=== PATIENT | male | born 1955 | race Caucasian/White ===

== ENCOUNTER 2019-02-16 22:26 | Inpatient (IN) | payer MEDICARE ==
[2019-02-17 06:26] VITALS: BP 127/64
--- NOTE | 2019-02-17 07:09 | Psychiatric Evaluation ---
DATE OF SERVICE: 02/17/2019 PSYCHIATRIC INITIAL EVALUATION AND MENTAL STATUS EXAMINATION AGE: 63. SEX: Male. PHYSICIAN: Said Radha Fiore M.D. CHIEF COMPLAINT: "I have been drinking too much." HISTORY OF PRESENT ILLNESS: The patient is a 63-year-old male who was transferred from [facility] for treatment of depression. The patient said he has been depressed because of his inability to stop drinking. The patient has been drinking about 6 pegs every day. The patient said that he has been depressed because he has not been able to stop drinking, although he had tried to stop drinking, but unable to do so. The patient has been feeling hopeless and helpless, but denies any thoughts of suicide. PAST PSYCHIATRIC HISTORY: The patient has not seen a psychiatrist or got any treatment for his drinking problem. PAST MEDICAL HISTORY: The patient has history of hypertension. SOCIAL HISTORY: The patient said that he has been for about 18 years, has 6 children between him and his current and this is his second marriage. The patient admits to drinking as mentioned above, but he denies any other drug use. He denies any legal issues or abuse issues. ALLERGIES: No known allergies. MENTAL STATUS EXAMINATION: The patient appears slightly older than his stated age. Anxious. Sad affect. In a depressed mood. Thought processes are mainly goal directed. The patient denies any auditory or visual hallucinations or delusions. The patient denies any suicidal or homicidal ideations. The patient is alert and oriented to time, place, person, and situation. Intact immediate, recent and remote memories. Fair insight and fair judgment. Seems to be of average intelligence based on his verbal ability. ASSESSMENT: PRIMARY DIAGNOSIS: Depressive mood disorder, unspecified. SECONDARY DIAGNOSIS: Alcohol use disorder. MEDICAL DIAGNOSIS: Hypertension. TREATMENT PLAN: We will monitor the patient's behavior and condition closely. We will start individual as well as milieu psychotherapy. We will monitor psychotropic medications. ESTIMATED LENGTH OF STAY: 5-7 days. PATIENT'S STRENGTHS AND WEAKNESSES: The patient's strength is not clear at this time. Weaknesses are his ineffective coping and his misuse of leisure time by drinking. AFTER DISCHARGE PLAN: Outpatient treatment and followup will continue as an outpatient. CRITERIA FOR DISCHARGE: The patient will not be as depressed and we will stabilize psychotropic medications and establish outpatient treatment plans including rehabilitation for his drinking and also the patient to return to [facility]. [facility]# [id number]
[2019-02-17] MEDS ORDERED: Albuterol Nebulizer 2.5mg/3mL HHN PRN (07:35)
[2019-02-17] MEDS ORDERED: Magnesium Hydroxide (MOM) 30 mL UDC PO PRN (07:40)
[2019-02-17] MEDS ORDERED: Acetaminophen 500 MG TAB PO PRN (07:45)
[2019-02-17] MEDS: Multivitamin Tab PO SCH (09:39)
--- NOTE | 2019-02-17 16:12 | History & Physical ---
ADMIT DATE: 02/17/2019 CHIEF COMPLAINT: Admitted to inpatient unit. HISTORY OF PRESENT ILLNESS: This is a 63-year-old male with history of stroke with left-sided weakness, left facial drooping, COPD, hypertension, hypercholesterolemia, BPH, admitted from [facility] and cleared medically from ____ ER. The patient was admitted under services of Dr. Fiore. The patient denies chest pain, shortness of breath, last stroke was 2 years ago, no changes since then. PAST MEDICAL HISTORY: As mentioned in history of present illness. PAST SURGICAL HISTORY: Status post left ankle surgery secondary to fracture. ALLERGIES: No known drug allergies. MEDICATIONS: Tylenol, albuterol nebulizer, Norvasc, atorvastatin, Dulcolax, Plavix, Colace, Lexapro, folic acid, hydrochlorothiazide, lorazepam, losartan, metoprolol, tamsulosin, Coumadin, Ambien. FAMILY HISTORY: Noncontributory. SOCIAL HISTORY: The patient lives in a custodial. The patient was avid smoker, a pack per day, drinks beer. No intravenous drug use. 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 REVIEW OF SYSTEMS: GENERAL: Complains not feeling well. HEENT: No blurred vision. No neck pain. LUNGS: Diagnosis of asthma, ____ chronic obstructive pulmonary disease and has been on oxygen from 2 years. HEART: The patient with hypertension, coronary artery disease, myocardial infarction. ABDOMEN: No nausea, vomiting, pain. GENITOURINARY: The patient denies increased frequency or dysuria. NEUROLOGIC: The patient with history of stroke, no headache, or seizure. PSYCHIATRIC: Stable. PHYSICAL EXAMINATION: VITAL SIGNS: Blood pressure 126/80, respirations 18, pulse 95, temperature 98.6. GENERAL: Elderly male, appears chronically ill. Left facial drooping. NECK: Supple. LUNGS: Equal breath sounds, otherwise clear to auscultation. HEART: Regular rate and rhythm with systolic ejection murmur. ABDOMEN: Soft, globular. EXTREMITIES: Positive excoriation atrophy, left upper extremity deformity and left lower extremity. NEUROLOGIC: Decreased motor and sensory in left upper and left lower extremity. LABORATORY DATA: CBC, CMP within range, ____ lipid and TSH are pending. ASSESSMENT AND PLAN: 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 Continue oxygen, bronchodilator treatments, continue anticoagulation. Pharmacy will be following. Continue on current antihypertensive medication. We will make some adjustment, continue statin. Continue Flomax. Continue with current care. JOB# [id number] MANJINDER
[2019-02-17] MEDS: Atorvastatin Calcium 10 MG TAB PO SCH (20:40)
[2019-02-18] MEDS: Multivitamin Tab PO SCH (08:27)
--- NOTE | 2019-02-18 10:37 | Progress Notes ---
DATE: SUBJECTIVE: Chart reviewed and the patient interviewed. Also discussed the patient's condition with the staff and reviewed records and labs. The patient is still in a depressed mood and is still guarded and withdrawn. The patient also still gets irritable and angry easily and with episodes of yelling and screaming at staff according to the staff. The patient also still needs directions and easy to follow directions. He wants to be left alone, but at times demanding and yesterday, the patient was demanding to talk to his sister who is living in [place], which he did talk to her. Otherwise, the patient continued to comply with taking his medications with no side effects of medications and he started on Lexapro 10 mg every day. ASSESSMENT: The patient is still depressed and in irritable mood. TREATMENT PLAN: Continue to monitor behavior and condition closely. Also, continue adjusting psychotropic medications and continue to work on behavioral modification. PSYCHIATRIC# [id number]
--- NOTE | 2019-02-18 12:38 | Internal Medicine Prog Note ---
Internal Medicine Subjective - Subjective Patient seen and examined:: with staff, chart reviewed Patient is:: awake, verbal, non-interactive, in bed Per staff patient has:: no adverse event, no episodes of fall, poor appetite, tolerating meds Internal Medicine Objective - Physical Exam Vitals and I&O: Vital Signs Temp 97.4 F 02/18/19 06:39 Pulse 72 02/18/19 06:39 Resp 18 02/18/19 06:39 BP 108/58 02/18/19 06:39 Pulse Ox 95 02/18/19 06:39 Intake & Output 02/17/19 02/18/19 02/18/19 18:59 06:59 18:59 Intake Total 860 120 Balance 860 120 Weight (lbs) 57.606 kg Intake: Oral 740 120 Other 120 Other: # Voids 2 3 # Bowel Movements 0 1 Stool Characteristics Soft Soft Active Medications: Current Medications Acetaminophen (Tylenol) 650 mg PO Q4HR PRN PRN Reason: Moderate Pain / Temp above 100 Stop: 04/18/19 06:31 Acetaminophen (Tylenol Extra Strength) 500 mg PO Q6H PRN PRN Reason: Pain (Mild) Stop: 04/18/19 07:44 Albuterol Sulfate (Albuterol 2.5mg/3ml Neb Ud) 2.5 mg HHN Q4H PRN PRN Reason: Shortness of Breath Stop: 04/18/19 07:34 Amlodipine Besylate (Norvasc) 2.5 mg PO DAILY [facility] Stop: 04/18/19 08:59 Last Admin: 02/18/19 08:26 Dose: Not Given Atorvastatin Calcium (Lipitor) 20 mg PO [facility]; Protocol Stop: 04/18/19 20:59 Last Admin: 02/17/19 20:40 Dose: 20 mg Bisacodyl (Dulcolax 10 Mg Supp) 10 mg RC DAILY PRN PRN Reason: Constipation Stop: 04/18/19 07:37 Clopidogrel Bisulfate (Plavix) 75 mg PO DAILY [facility] Stop: 04/18/19 08:59 Last Admin: 02/18/19 08:26 Dose: 75 mg Docusate Sodium (Colace) 100 mg PO BID PRN PRN Reason: Constipation Stop: 04/18/19 08:59 Last Admin: 02/17/19 16:22 Dose: 100 mg Escitalopram Oxalate (Lexapro) 10 mg PO DAILY [facility]; Protocol Stop: 04/18/19 08:59 Last Admin: 02/18/19 08:26 Dose: 10 mg Folic Acid (Folate) 1 mg PO DAILY [facility] Stop: 04/18/19 08:59 Last Admin: 02/18/19 08:27 Dose: 1 mg Hydrochlorothiazide (Hctz) 12.5 mg PO DAILY [facility] Stop: 04/18/19 08:59 Last Admin: 02/18/19 08:27 Dose: Not Given Lorazepam (Ativan) 0.5 mg PO Q4HR PRN; Protocol PRN Reason: Anxiety Stop: 03/19/19 06:31 Losartan Potassium (Cozaar) 50 mg PO DAILY [facility] Stop: 04/18/19 08:59 Last Admin: 02/18/19 08:26 Dose: Not Given Magnesium Hydroxide (Milk Of Magnesia) 30 ml PO HS PRN PRN Reason: Constipation Stop: 04/18/19 07:39 Metoprolol Tartrate (Lopressor) 25 mg PO BID [facility] Stop: 04/18/19 08:59 Last Admin: 02/18/19 08:28 Dose: Not Given Multivitamins/Vitamin C (Theragran) 1 tab PO DAILY [facility] Stop: 04/18/19 08:59 Last Admin: 02/18/19 08:27 Dose: 1 tab Tamsulosin HCl (Flomax) 0.4 mg PO HS [facility] Stop: 04/18/19 20:59 Last Admin: 02/17/19 20:40 Dose: 0.4 mg Thiamine HCl (Vitamin B1) 100 mg PO DAILY [facility] Stop: 04/18/19 08:59 Last Admin: 02/18/19 08:26 Dose: 100 mg Warfarin Sodium (Coumadin) 3 mg PO 1700 [facility]; Protocol Stop: 02/19/19 16:59 Last Admin: 02/17/19 16:23 Dose: 3 mg Warfarin Sodium (Coumadin Per Pharmacy) 1 ea MC 1700 [facility]; Protocol Stop: 04/18/19 16:59 Zolpidem Tartrate (Ambien) 5 mg PO HS PRN PRN Reason: Insomnia Stop: 04/18/19 06:31 General: demented HEENT: NC/AT, PERRLA, EOMI, thinning hair, poor dentition Neck: Supple, No JVD Lungs: CTAB Cardiovascular: RRR, Normal S1, Normal S2 Abdomen: soft, non-tender, non-distended, positive bowel sound Extremities: excoriation Neurological: no change, disorganized Internal Medicine Assmt/Plan - Assessment Assessment: ASSESSMENT AND PLAN: 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 - Plan Plan: PLAN: (the patient is oxygen dependent). Continue oxygen, bronchodilator treatments, continue anticoagulation. Pharmacy will be following. Continue on current antihypertensive medication. We will make some adjustment, continue statin. Continue Flomax. Continue with current care. Nutritional Asmnt/Malnutr-PDOC - Dietary Evaluation Malnutrition Findings (Please click <Entered> for more info): Nutritional Asmnt/Malnutrition Start: 02/17/19 16: 01 Text: Status: Active Freq: Protocol: Document 02/17/19 16:02 PATRICIA (Rec: 02/17/19 16:06 PATRICIA [email or web address]) Nutritional Asmnt/Malnutrition Patient General Information Nutritional Screening Moderate Risk Consult Diagnosis Depression, FTT Pertinent Medical Hx/Surgical Hx HTN, RN stated Pt had a previous stroke (No H&P Report , limited Hx) Subjective Information IA, Consult: FTT Pt is a 63-year-old male admitted on 02/17 c/o drinking too much with associated depression. Received consult for Failure to Thrive. Visited Pt in room, pt was awake and alert. Pt stated he has not had anything to drink in 5-6 years. He stated he has lost 25# in the last few months. I had nurse, Carla, recheck pts weight as he did not appear obese. His current weight is 127 LB (57.73 kg), this is a correction from his [employer] stats having his weight at 220#. Pt did not seem to have fat/muscle wasting at the temples, under eyes, or near the clavicle, but did seem overall skinny. Asked pt how his appetite has been, he stated fine, but GEOPHYSICIST reported he only ate 25% breakfast and lunch. I offered pt a snack, asking if he was hungry right now. He said yes. I brought him an Ensure Enlive, chocolate is his favorite flavor, and egg salad sandwich and some pears. I told pt to do his best to eat at dinner time and drink liquids to help with his constipation. He stated OK. Pt was alert and seemed to understand, however was also a little unfocused and may have been confused. Spoke with Carla about offering him snacks between meals. Will add Ensure Enlive TID. HT: 511 WT: 127 LB (57.73 kg) BMI: 17.7 (Underweight) GI: Flat, Soft BM: Not noted, Constipation Skin: WNL, Intact, no edema present Alessandro: 14 Diet Order: Cardiac Estimated Energy Needs: ( Underweight, CBW) 2357-0669 kcals (30-35 kcals/ kg) 58-70g Pro (1.0-1.2 g/kg) 4010-9959 ml (25-30 ml/kg) Current Diet Order/ Nutrition Support Cardiac Pertinent Medications Albuterol, Lipitor, Plavix, Colace, Folate, Hydrochlorothiazide, Cozaar, MOM (PRN), Flomax, Vitamin B1, Coumadin Pertinent Labs No current labs to report Nutritional Hx/Data Height 1.8 m Height (Calculated Centimeters) 180.3 Current Weight (lbs) 57.606 kg Weight (Calculated Kilograms) 57.6 Weight (Calculated Grams) 31896.2 [place] Body Weight 172 LB (78.18 kg) % [place] Body Weight 74 Body Mass Index (BMI) 17.6 Weight Status Underweight GI Symptoms GI Symptoms Constipation Last BM Not noted, Constipation Skin Integrity/Comment: Skin: WNL, Intact, no edema present Alessandro: 14 Estimated Nutritional Goals BEE in Kcals: Using Current wt Calories/Kcals/Kg 30-35 Kcals Calculated 5107-2900 Protein: Using Current wt Protein g/k.0-1.2 Protein Calculated 58-70 Fluid: ml 8326-4638 ml (25-30 ml/kg) Nutritional Problem 1. Problem Problem Underweight Etiology r/t consistent inadequate energy intake Signs/Symptoms: aeb BMI 17.7, and PO intake 25 % meals. Malnutrition Related to Morbid Obesity Malnutrition related to morbid obesity No Intervention/Recommendation Comments 1.Continue with Cardiac diet as ordered. 2.Add Ensure Enlive TID ( completed). Expected Outcomes/Goals Expected Outcomes/Goals 1. PO intake to meet 75% of nutritional needs. 2. Monitor PO intake, wt, nutrition related labs, and skin integrity. 3. F/U as moderate risk in 3-5 days, 02/20-02/22
[2019-02-18] MEDS: Atorvastatin Calcium 10 MG TAB PO SCH (20:46)
[2019-02-19] MEDS: Multivitamin Tab PO SCH (09:43)
--- NOTE | 2019-02-19 12:54 | Internal Medicine Prog Note ---
Internal Medicine Subjective - Subjective Patient seen and examined:: with staff, chart reviewed Patient is:: awake, verbal, non-interactive, in bed Per staff patient has:: no adverse event, no episodes of fall, poor appetite, tolerating meds Internal Medicine Objective - Physical Exam Vitals and I&O: Vital Signs Temp 98.1 F 02/19/19 06:43 Pulse 88 02/19/19 09:41 Resp 20 02/19/19 06:43 BP 122/73 02/19/19 09:44 Pulse Ox 97 02/19/19 06:43 Intake & Output 02/18/19 02/19/19 02/19/19 18:59 06:59 18:59 Intake Total 240 Balance 240 Intake: Oral 240 Other: # Voids 1 Stool Characteristics Soft Soft Active Medications: Current Medications Acetaminophen (Tylenol) 650 mg PO Q4HR PRN PRN Reason: Moderate Pain / Temp above 100 Stop: 04/18/19 06:31 Acetaminophen (Tylenol Extra Strength) 500 mg PO Q6H PRN PRN Reason: Pain (Mild) Stop: 04/18/19 07:44 Albuterol Sulfate (Albuterol 2.5mg/3ml Neb Ud) 2.5 mg HHN Q4H PRN PRN Reason: Shortness of Breath Stop: 04/18/19 07:34 Amlodipine Besylate (Norvasc) 2.5 mg PO DAILY [facility] Stop: 04/18/19 08:59 Last Admin: 02/19/19 09:41 Dose: 2.5 mg Atorvastatin Calcium (Lipitor) 20 mg PO HS [facility]; Protocol Stop: 04/18/19 20:59 Last Admin: 02/18/19 20:46 Dose: 20 mg Bisacodyl (Dulcolax 10 Mg Supp) 10 mg RC DAILY PRN PRN Reason: Constipation Stop: 04/18/19 07:37 Clopidogrel Bisulfate (Plavix) 75 mg PO DAILY [facility] Stop: 04/18/19 08:59 Last Admin: 02/19/19 09:39 Dose: 75 mg Docusate Sodium (Colace) 100 mg PO BID PRN PRN Reason: Constipation Stop: 04/18/19 08:59 Last Admin: 02/17/19 16:22 Dose: 100 mg Escitalopram Oxalate (Lexapro) 10 mg PO DAILY [facility]; Protocol Stop: 04/18/19 08:59 Last Admin: 02/19/19 09:43 Dose: 10 mg Folic Acid (Folate) 1 mg PO DAILY [facility] Stop: 04/18/19 08:59 Last Admin: 02/19/19 09:40 Dose: 1 mg Hydrochlorothiazide (Hctz) 12.5 mg PO DAILY [facility] Stop: 04/18/19 08:59 Last Admin: 02/19/19 09:44 Dose: 12.5 mg Lorazepam (Ativan) 0.5 mg PO Q4HR PRN; Protocol PRN Reason: Anxiety Stop: 03/19/19 06:31 Losartan Potassium (Cozaar) 50 mg PO DAILY [facility] Stop: 04/18/19 08:59 Last Admin: 02/19/19 09:40 Dose: 50 mg Magnesium Hydroxide (Milk Of Magnesia) 30 ml PO HS PRN PRN Reason: Constipation Stop: 04/18/19 07:39 Metoprolol Tartrate (Lopressor) 25 mg PO BID [facility] Stop: 04/18/19 08:59 Last Admin: 02/19/19 09:40 Dose: 25 mg Multivitamins/Vitamin C (Theragran) 1 tab PO DAILY [facility] Stop: 04/18/19 08:59 Last Admin: 02/19/19 09:43 Dose: 1 tab Tamsulosin HCl (Flomax) 0.4 mg PO HS [facility] Stop: 04/18/19 20:59 Last Admin: 02/18/19 20:46 Dose: 0.4 mg Thiamine HCl (Vitamin B1) 100 mg PO DAILY [facility] Stop: 04/18/19 08:59 Last Admin: 02/19/19 09:43 Dose: 100 mg Warfarin Sodium (Coumadin) 3 mg PO 1700 [facility]; Protocol Stop: 02/19/19 16:59 Last Admin: 02/18/19 17:12 Dose: 3 mg Warfarin Sodium (Coumadin Per Pharmacy) 1 ea MC 1700 [facility]; Protocol Stop: 04/18/19 16:59 Zolpidem Tartrate (Ambien) 5 mg PO HS PRN PRN Reason: Insomnia Stop: 04/18/19 06:31 General: demented HEENT: NC/AT, PERRLA, EOMI, thinning hair, poor dentition Neck: Supple, No JVD Lungs: CTAB Cardiovascular: RRR, Normal S1, Normal S2 Abdomen: soft, non-tender, non-distended, positive bowel sound Extremities: excoriation Neurological: no change, disorganized Internal Medicine Assmt/Plan - Assessment Assessment: ASSESSMENT AND PLAN: 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 - Plan Plan: PLAN: (the patient is oxygen dependent). Continue oxygen, bronchodilator treatments, continue anticoagulation. Pharmacy will be following. Continue on current antihypertensive medication. We will make some adjustment, continue statin. Continue Flomax. Continue with current care. Nutritional Asmnt/Malnutr-PDOC - Dietary Evaluation Malnutrition Findings (Please click <Entered> for more info): Nutritional Asmnt/Malnutrition Start: 02/17/19 16: 01 Text: Status: Active Freq: Protocol: Document 02/17/19 16:02 PATRICIA (Rec: 02/17/19 16:06 PATRICIA [id number]) Nutritional Asmnt/Malnutrition Patient General Information Nutritional Screening Moderate Risk Consult Diagnosis Depression, FTT Pertinent Medical Hx/Surgical Hx HTN, RN stated Pt had a previous stroke (No H&P Report , limited Hx) Subjective Information IA, Consult: FTT Pt is a 63-year-old male admitted on 02/17 c/o drinking too much with associated depression. Received consult for Failure to Thrive. Visited Pt in room, pt was awake and alert. Pt stated he has not had anything to drink in 5-6 years. He stated he has lost 25# in the last few months. I had nurse, Carla, recheck pts weight as he did not appear obese. His current weight is 127 LB (57.73 kg), this is a correction from his [employer] stats having his weight at 220#. Pt did not seem to have fat/muscle wasting at the temples, under eyes, or near the clavicle, but did seem overall skinny. Asked pt how his appetite has been, he stated fine, but DIRECTOR OF LABORATORY OPERATIONS reported he only ate 25% breakfast and lunch. I offered pt a snack, asking if he was hungry right now. He said yes. I brought him an Ensure Enlive, chocolate is his favorite flavor, and egg salad sandwich and some pears. I told pt to do his best to eat at dinner time and drink liquids to help with his constipation. He stated OK. Pt was alert and seemed to understand, however was also a little unfocused and may have been confused. Spoke with Carla about offering him snacks between meals. Will add Ensure Enlive TID. HT: 511 WT: 127 LB (57.73 kg) BMI: 17.7 (Underweight) GI: Flat, Soft BM: Not noted, Constipation Skin: WNL, Intact, no edema present Alessandro: 14 Diet Order: Cardiac Estimated Energy Needs: ( Underweight, CBW) 3744-7960 kcals (30-35 kcals/ kg) 58-70g Pro (1.0-1.2 g/kg) 0926-0468 ml (25-30 ml/kg) Current Diet Order/ Nutrition Support Cardiac Pertinent Medications Albuterol, Lipitor, Plavix, Colace, Folate, Hydrochlorothiazide, Cozaar, MOM (PRN), Flomax, Vitamin B1, Coumadin Pertinent Labs No current labs to report Nutritional Hx/Data Height 1.8 m Height (Calculated Centimeters) 180.3 Current Weight (lbs) 57.606 kg Weight (Calculated Kilograms) 57.6 Weight (Calculated Grams) 56750.2 [place] Body Weight 172 LB (78.18 kg) % [place] Body Weight 74 Body Mass Index (BMI) 17.6 Weight Status Underweight GI Symptoms GI Symptoms Constipation Last BM Not noted, Constipation Skin Integrity/Comment: Skin: WNL, Intact, no edema present Alessandro: 14 Estimated Nutritional Goals BEE in Kcals: Using Current wt Calories/Kcals/Kg 30-35 Kcals Calculated 8446-1953 Protein: Using Current wt Protein g/k.0-1.2 Protein Calculated 58-70 Fluid: ml 7817-0838 ml (25-30 ml/kg) Nutritional Problem 1. Problem Problem Underweight Etiology r/t consistent inadequate energy intake Signs/Symptoms: aeb BMI 17.7, and PO intake 25 % meals. Malnutrition Related to Morbid Obesity Malnutrition related to morbid obesity No Intervention/Recommendation Comments 1.Continue with Cardiac diet as ordered. 2.Add Ensure Enlive TID ( completed). Expected Outcomes/Goals Expected Outcomes/Goals 1. PO intake to meet 75% of nutritional needs. 2. Monitor PO intake, wt, nutrition related labs, and skin integrity. 3. F/U as moderate risk in 3-5 days, 02/20-02/22
[2019-02-19] MEDS: Atorvastatin Calcium 10 MG TAB PO SCH (20:14)
--- NOTE | 2019-02-20 00:27 | Progress Notes ---
DATE: 02/19/2019 SUBJECTIVE: Chart reviewed and the patient interviewed. Also discussed the patient's condition with the staff and reviewed records and labs. The patient is still in a depressed mood and still has episodes of anger and irritability, was yelling and demanding. The patient also still seems to be confused and he still has episodes of severe irritability. The patient also still needs close monitoring. He is suspicious and is still paranoid. Otherwise, the patient is compliant with taking his medications with no side effects of medications and the patient started on Lexapro 10 mg every day with no side effects. ASSESSMENT: The patient is still depressed and agitated. TREATMENT PLAN: Continue to monitor behavior and condition closely. Also, continue to work on his behavior and behavior modification and continue to follow up. JOB# [id number]
[2019-02-20] MEDS: Multivitamin Tab PO SCH (10:00)
--- NOTE | 2019-02-20 15:26 | Internal Medicine Prog Note ---
Internal Medicine Subjective - Subjective Service Date: 02/20/19 Patient is:: awake, verbal, non-interactive, in bed Per staff patient has:: no adverse event, no episodes of fall, poor appetite, tolerating meds Internal Medicine Objective - Physical Exam Vitals and I&O: Vital Signs Temp 98.3 F 02/20/19 14:00 Pulse 77 02/20/19 14:00 Resp 20 02/20/19 14:00 BP 125/66 02/20/19 14:00 Pulse Ox 98 02/20/19 14:00 Intake & Output 02/19/19 02/20/19 02/20/19 18:59 06:59 18:59 Intake Total 960 720 Output Total 1 Balance 960 719 Intake: Oral 960 720 Output: Stool 1 Other: # Voids 4 3 # Bowel Movements 1 Stool Characteristics Soft Soft Active Medications: Current Medications Acetaminophen (Tylenol) 650 mg PO Q4HR PRN PRN Reason: Moderate Pain / Temp above 100 Stop: 04/18/19 06:31 Acetaminophen (Tylenol Extra Strength) 500 mg PO Q6H PRN PRN Reason: Pain (Mild) Stop: 04/18/19 07:44 Albuterol Sulfate (Albuterol 2.5mg/3ml Neb Ud) 2.5 mg HHN Q4H PRN PRN Reason: Shortness of Breath Stop: 04/18/19 07:34 Amlodipine Besylate (Norvasc) 2.5 mg PO DAILY [facility] Stop: 04/18/19 08:59 Last Admin: 02/20/19 10:00 Dose: Not Given Atorvastatin Calcium (Lipitor) 20 mg PO [facility]; Protocol Stop: 04/18/19 20:59 Last Admin: 02/19/19 20:14 Dose: 20 mg Bisacodyl (Dulcolax 10 Mg Supp) 10 mg RC DAILY PRN PRN Reason: Constipation Stop: 04/18/19 07:37 Clopidogrel Bisulfate (Plavix) 75 mg PO DAILY [facility] Stop: 04/18/19 08:59 Last Admin: 02/20/19 10:00 Dose: 75 mg Docusate Sodium (Colace) 100 mg PO BID PRN PRN Reason: Constipation Stop: 04/18/19 08:59 Last Admin: 02/17/19 16:22 Dose: 100 mg Escitalopram Oxalate (Lexapro) 10 mg PO DAILY [facility]; Protocol Stop: 04/18/19 08:59 Last Admin: 02/20/19 10:00 Dose: 10 mg Folic Acid (Folate) 1 mg PO DAILY [facility] Stop: 04/18/19 08:59 Last Admin: 02/20/19 10:00 Dose: 1 mg Hydrochlorothiazide (Hctz) 12.5 mg PO DAILY [facility] Stop: 04/18/19 08:59 Last Admin: 02/20/19 10:00 Dose: Not Given Lorazepam (Ativan) 0.5 mg PO Q4HR PRN; Protocol PRN Reason: Anxiety Stop: 03/19/19 06:31 Losartan Potassium (Cozaar) 50 mg PO DAILY [facility] Stop: 04/18/19 08:59 Last Admin: 02/20/19 10:00 Dose: Not Given Magnesium Hydroxide (Milk Of Magnesia) 30 ml PO HS PRN PRN Reason: Constipation Stop: 04/18/19 07:39 Metoprolol Tartrate (Lopressor) 25 mg PO BID [facility] Stop: 04/18/19 08:59 Last Admin: 02/20/19 10:00 Dose: Not Given Multivitamins/Vitamin C (Theragran) 1 tab PO DAILY [facility] Stop: 04/18/19 08:59 Last Admin: 02/20/19 10:00 Dose: 1 tab Tamsulosin HCl (Flomax) 0.4 mg PO HS [facility] Stop: 04/18/19 20:59 Last Admin: 02/19/19 20:14 Dose: 0.4 mg Thiamine HCl (Vitamin B1) 100 mg PO DAILY [facility] Stop: 04/18/19 08:59 Last Admin: 02/20/19 10:00 Dose: 100 mg Warfarin Sodium (Coumadin) 3 mg PO 1700 [facility]; Protocol Stop: 02/26/19 16:59 Last Admin: 02/19/19 17:48 Dose: 3 mg Warfarin Sodium (Coumadin Per Pharmacy) 1 ea 1700 [facility]; Protocol Stop: 04/18/19 16:59 Zolpidem Tartrate (Ambien) 5 mg PO HS PRN PRN Reason: Insomnia Stop: 04/18/19 06:31 General: demented HEENT: NC/AT, PERRLA, EOMI, thinning hair, poor dentition Neck: Supple, No JVD Lungs: CTAB Cardiovascular: RRR, Normal S1, Normal S2 Abdomen: soft, non-tender, non-distended, positive bowel sound Extremities: excoriation Neurological: no change, disorganized Internal Medicine Assmt/Plan - Assessment Assessment: 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 - Plan Plan: PLAN: (the patient is oxygen dependent). Continue oxygen, bronchodilator treatments, continue anticoagulation. Pharmacy will be following. Continue on current antihypertensive medication. We will make some adjustment, continue statin. Continue Flomax. Continue with current Nutritional Asmnt/Malnutr-PDOC - Dietary Evaluation Malnutrition Findings (Please click <Entered> for more info): Nutritional Asmnt/Malnutrition Start: 02/17/19 16: 01 Text: Status: Complete Freq: Protocol: Document 02/17/19 16:02 PATRICIA (Rec: 02/17/19 16:06 PATRICIA [id number]) Nutritional Asmnt/Malnutrition Patient General Information Nutritional Screening Moderate Risk Consult Diagnosis Depression, FTT Pertinent Medical Hx/Surgical Hx HTN, RN stated Pt had a previous stroke (No H&P Report , limited Hx) Subjective Information IA, Consult: FTT Pt is a 63-year-old male admitted on 02/17 c/o drinking too much with associated depression. Received consult for Failure to Thrive. Visited Pt in room, pt was awake and alert. Pt stated he has not had anything to drink in 5-6 years. He stated he has lost 25# in the last few months. I had nurse, Carla, recheck pts weight as he did not appear obese. His current weight is 127 LB (57.73 kg), this is a correction from his [facility] stats having his weight at 220#. Pt did not seem to have fat/muscle wasting at the temples, under eyes, or near the clavicle, but did seem overall skinny. Asked pt how his appetite has been, he stated fine, but H[employer] CAPITAL MANAGER reported he only ate 25% breakfast and lunch. I offered pt a snack, asking if he was hungry right now. He said yes. I brought him an Ensure Enlive, chocolate is his favorite flavor, and egg salad sandwich and some pears. I told pt to do his best to eat at dinner time and drink liquids to help with his constipation. He stated OK. Pt was alert and seemed to understand, however was also a little unfocused and may have been confused. Spoke with Carla about offering him snacks between meals. Will add Ensure Enlive TID. HT: 511 WT: 127 LB (57.73 kg) BMI: 17.7 (Underweight) GI: Flat, Soft BM: Not noted, Constipation Skin: WNL, Intact, no edema present Alessandro: 14 Diet Order: Cardiac Estimated Energy Needs: ( Underweight, CBW) 2640-6853 kcals (30-35 kcals/ kg) 58-70g Pro (1.0-1.2 g/kg) 9168-2630 ml (25-30 ml/kg) Current Diet Order/ Nutrition Support Cardiac Pertinent Medications Albuterol, Lipitor, Plavix, Colace, Folate, Hydrochlorothiazide, Cozaar, MOM (PRN), Flomax, Vitamin B1, Coumadin Pertinent Labs No current labs to report Nutritional Hx/Data Height 5 ft 11 in Height (Calculated Centimeters) 180.3 Current Weight (lbs) 127 lb Weight (Calculated Kilograms) 57.6 Weight (Calculated Grams) 70983.2 [place] Body Weight 172 LB (78.18 kg) % [place] Body Weight 74 Body Mass Index (BMI) 17.6 Weight Status Underweight GI Symptoms GI Symptoms Constipation Last BM Not noted, Constipation Skin Integrity/Comment: Skin: WNL, Intact, no edema present Alessandro: 14 Estimated Nutritional Goals BEE in Kcals: Using Current wt Calories/Kcals/Kg 30-35 Kcals Calculated 8859-8828 Protein: Using Current wt Protein g/k.0-1.2 Protein Calculated 58-70 Fluid: ml 3353-4291 ml (25-30 ml/kg) Nutritional Problem 1. Problem Problem Underweight Etiology r/t consistent inadequate energy intake Signs/Symptoms: aeb BMI 17.7, and PO intake 25 % meals. Malnutrition Related to Morbid Obesity Malnutrition related to morbid obesity No Intervention/Recommendation Comments 1.Continue with Cardiac diet as ordered. 2.Add Ensure Enlive TID ( completed). Expected Outcomes/Goals Expected Outcomes/Goals 1. PO intake to meet 75% of nutritional needs. 2. Monitor PO intake, wt, nutrition related labs, and skin integrity. 3. F/U as moderate risk in 3-5 days, 02/20-02/22
[2019-02-20] MEDS: Atorvastatin Calcium 10 MG TAB PO SCH (21:06)
--- NOTE | 2019-02-20 23:34 | Progress Notes ---
DATE: 02/20/2019 PSYCHIATRIC PROGRESS NOTE SUBJECTIVE: Chart reviewed and the patient interviewed. Also discussed the patient's condition with the staff and reviewed records and labs. The patient is still restless and is still demanding. The patient also still needs close monitoring and the patient is trying to remove the oxygen cannula from his nose because of confusion and he gets agitated when staff tries to redirect him. The patient also is still suspicious and paranoid and in angry mood. He also still needs lots of redirections and wants to be left alone and is still depressed with hopeless feelings. Otherwise, the patient is compliant with taking Lexapro with no side effects. ASSESSMENT: The patient is still depressed and confused. TREATMENT PLAN: Continue to monitor his behavior and his condition closely. Also, continue to work on his ineffective coping and his anger and continue to follow up. JOB# [id number]
[2019-02-21] MEDS: Multivitamin Tab PO SCH (08:55)
--- NOTE | 2019-02-21 15:23 | Internal Medicine Prog Note ---
Internal Medicine Subjective - Subjective Service Date: 02/21/19 Patient is:: awake, verbal, non-interactive, in bed Per staff patient has:: no adverse event, no episodes of fall, poor appetite, tolerating meds Internal Medicine Objective - Physical Exam Vitals and I&O: Vital Signs Temp 98.4 F 02/21/19 14:00 Pulse 78 02/21/19 14:00 Resp 18 02/21/19 14:00 BP 145/64 02/21/19 14:00 Pulse Ox 96 02/21/19 14:00 Intake & Output 02/20/19 02/21/19 02/21/19 18:59 06:59 18:59 Intake Total 120 Balance 120 Intake: Oral 120 Other: # Voids 3 3 # Bowel Movements 2 Stool Characteristics Soft Soft Soft Active Medications: Current Medications Acetaminophen (Tylenol) 650 mg PO Q4HR PRN PRN Reason: Moderate Pain / Temp above 100 Stop: 04/18/19 06:31 Acetaminophen (Tylenol Extra Strength) 500 mg PO Q6H PRN PRN Reason: Pain (Mild) Stop: 04/18/19 07:44 Albuterol Sulfate (Albuterol 2.5mg/3ml Neb Ud) 2.5 mg HHN Q4H PRN PRN Reason: Shortness of Breath Stop: 04/18/19 07:34 Amlodipine Besylate (Norvasc) 2.5 mg PO DAILY [facility] Stop: 04/18/19 08:59 Last Admin: 02/21/19 08:56 Dose: Not Given Atorvastatin Calcium (Lipitor) 20 mg PO HS [facility]; Protocol Stop: 04/18/19 20:59 Last Admin: 02/20/19 21:06 Dose: 20 mg Bisacodyl (Dulcolax 10 Mg Supp) 10 mg RC DAILY PRN PRN Reason: Constipation Stop: 04/18/19 07:37 Clopidogrel Bisulfate (Plavix) 75 mg PO DAILY [facility] Stop: 04/18/19 08:59 Last Admin: 02/21/19 08:56 Dose: 75 mg Docusate Sodium (Colace) 100 mg PO BID PRN PRN Reason: Constipation Stop: 04/18/19 08:59 Last Admin: 02/17/19 16:22 Dose: 100 mg Escitalopram Oxalate (Lexapro) 10 mg PO DAILY [facility]; Protocol Stop: 04/18/19 08:59 Last Admin: 02/21/19 08:54 Dose: 10 mg Folic Acid (Folate) 1 mg PO DAILY [facility] Stop: 04/18/19 08:59 Last Admin: 02/21/19 08:55 Dose: 1 mg Hydrochlorothiazide (Hctz) 12.5 mg PO DAILY [facility] Stop: 04/18/19 08:59 Last Admin: 02/21/19 08:55 Dose: Not Given Lorazepam (Ativan) 0.5 mg PO Q4HR PRN; Protocol PRN Reason: Anxiety Stop: 03/19/19 06:31 Last Admin: 02/21/19 00:49 Dose: 0.5 mg Losartan Potassium (Cozaar) 50 mg PO DAILY [facility] Stop: 04/18/19 08:59 Last Admin: 02/21/19 08:56 Dose: Not Given Magnesium Hydroxide (Milk Of Magnesia) 30 ml PO HS PRN PRN Reason: Constipation Stop: 04/18/19 07:39 Metoprolol Tartrate (Lopressor) 25 mg PO BID [facility] Stop: 04/18/19 08:59 Last Admin: 02/21/19 08:54 Dose: Not Given Multivitamins/Vitamin C (Theragran) 1 tab PO DAILY [facility] Stop: 04/18/19 08:59 Last Admin: 02/21/19 08:55 Dose: 1 tab Tamsulosin HCl (Flomax) 0.4 mg PO HS [facility] Stop: 04/18/19 20:59 Last Admin: 02/20/19 21:07 Dose: 0.4 mg Thiamine HCl (Vitamin B1) 100 mg PO DAILY [facility] Stop: 04/18/19 08:59 Last Admin: 02/21/19 08:55 Dose: 100 mg Warfarin Sodium (Coumadin) 3 mg PO 1700 [facility]; Protocol Stop: 02/26/19 16:59 Last Admin: 02/20/19 18:00 Dose: 3 mg Warfarin Sodium (Coumadin Per Pharmacy) 1 ea [facility] 1700 [facility]; Protocol Stop: 04/18/19 16:59 Zolpidem Tartrate (Ambien) 5 mg PO HS PRN PRN Reason: Insomnia Stop: 04/18/19 06:31 Last Admin: 02/20/19 21:07 Dose: 5 mg General: demented HEENT: NC/AT, PERRLA, EOMI, thinning hair, poor dentition Neck: Supple, No JVD Lungs: CTAB Cardiovascular: RRR, Normal S1, Normal S2 Abdomen: soft, non-tender, non-distended, positive bowel sound Extremities: excoriation Neurological: no change, disorganized Internal Medicine Assmt/Plan - Assessment Assessment: 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 - Plan Plan: PLAN: (the patient is oxygen dependent). Continue oxygen, bronchodilator treatments, continue anticoagulation. Pharmacy will be following. Continue on current antihypertensive medication. We will make some adjustment, continue statin. Continue Flomax. Continue with current Nutritional Asmnt/Malnutr-PDOC - Dietary Evaluation Malnutrition Findings (Please click <Entered> for more info): Nutritional Asmnt/Malnutrition Start: 02/17/19 16: 01 Text: Status: Complete Freq: Protocol: Document 02/17/19 16:02 PATRICIA (Rec: 02/17/19 16:06 PATRICIA [email or web address]) Nutritional Asmnt/Malnutrition Patient General Information Nutritional Screening Moderate Risk Consult Diagnosis Depression, FTT Pertinent Medical Hx/Surgical Hx HTN, RN stated Pt had a previous stroke (No H&P Report , limited Hx) Subjective Information IA, Consult: FTT Pt is a 63-year-old male admitted on 02/17 c/o drinking too much with associated depression. Received consult for Failure to Thrive. Visited Pt in room, pt was awake and alert. Pt stated he has not had anything to drink in 5-6 years. He stated he has lost 25# in the last few months. I had nurse, Carla, recheck pts weight as he did not appear obese. His current weight is 127 LB (57.73 kg), this is a correction from his [place] stats having his weight at 220#. Pt did not seem to have fat/muscle wasting at the temples, under eyes, or near the clavicle, but did seem overall skinny. Asked pt how his appetite has been, he stated fine, but [employer] APPOINTMENT SETTER reported he only ate 25% breakfast and lunch. I offered pt a snack, asking if he was hungry right now. He said yes. I brought him an Ensure Enlive, chocolate is his favorite flavor, and egg salad sandwich and some pears. I told pt to do his best to eat at dinner time and drink liquids to help with his constipation. He stated OK. Pt was alert and seemed to understand, however was also a little unfocused and may have been confused. Spoke with Crala about offering him snacks between meals. Will add Ensure Enlive TID. HT: 511 WT: 127 LB (57.73 kg) BMI: 17.7 (Underweight) GI: Flat, Soft BM: Not noted, Constipation Skin: WNL, Intact, no edema present Alessandro: 14 Diet Order: Cardiac Estimated Energy Needs: ( Underweight, CBW) 4752-2627 kcals (30-35 kcals/ kg) 58-70g Pro (1.0-1.2 g/kg) 1039-9392 ml (25-30 ml/kg) Current Diet Order/ Nutrition Support Cardiac Pertinent Medications Albuterol, Lipitor, Plavix, Colace, Folate, Hydrochlorothiazide, Cozaar, MOM (PRN), Flomax, Vitamin B1, Coumadin Pertinent Labs No current labs to report Nutritional Hx/Data Height 5 ft 11 in Height (Calculated Centimeters) 180.3 Current Weight (lbs) 127 lb Weight (Calculated Kilograms) 57.6 Weight (Calculated Grams) 05799.2 [place] Body Weight 172 LB (78.18 kg) % [place] Body Weight 74 Body Mass Index (BMI) 17.6 Weight Status Underweight GI Symptoms GI Symptoms Constipation Last BM Not noted, Constipation Skin Integrity/Comment: Skin: WNL, Intact, no edema present Alessandro: 14 Estimated Nutritional Goals BEE in Kcals: Using Current wt Calories/Kcals/Kg 30-35 Kcals Calculated 7386-4119 Protein: Using Current wt Protein g/k.0-1.2 Protein Calculated 58-70 Fluid: ml 9388-8737 ml (25-30 ml/kg) Nutritional Problem 1. Problem Problem Underweight Etiology r/t consistent inadequate energy intake Signs/Symptoms: aeb BMI 17.7, and PO intake 25 % meals. Malnutrition Related to Morbid Obesity Malnutrition related to morbid obesity No Intervention/Recommendation Comments 1.Continue with Cardiac diet as ordered. 2.Add Ensure Enlive TID ( completed). Expected Outcomes/Goals Expected Outcomes/Goals 1. PO intake to meet 75% of nutritional needs. 2. Monitor PO intake, wt, nutrition related labs, and skin integrity. 3. F/U as moderate risk in 3-5 days, 02/20-02/22
[2019-02-21] MEDS: Atorvastatin Calcium 10 MG TAB PO SCH (20:43)
--- NOTE | 2019-02-22 02:05 | Progress Notes ---
DATE: SUBJECTIVE: Chart reviewed and the patient interviewed. Also discussed the patient's condition with the staff and reviewed records and labs. The patient is still demanding and still has episodes of yelling and screaming. The patient also is still restless and he is still in irritable mood. He also still wants to be left alone. Otherwise, the patient continued to comply with taking his medications and the patient continued to take Lexapro 10 mg every day with no side effects. ASSESSMENT: The patient is still depressed and agitated. TREATMENT PLAN: Continue to monitor behavior and condition closely. Also, continue current medications and work on his ineffective coping and poor impulse control. JOB# [id number]
[2019-02-22] MEDS: Multivitamin Tab PO SCH (08:45)
--- NOTE | 2019-02-22 12:45 | Internal Medicine Prog Note ---
Internal Medicine Subjective - Subjective Patient seen and examined:: with staff, chart reviewed Patient is:: awake, verbal, non-interactive, in bed Per staff patient has:: no adverse event, no episodes of fall, poor appetite, tolerating meds Internal Medicine Objective - Physical Exam Vitals and I&O: Vital Signs Temp 98.1 F 02/22/19 06:46 Pulse 70 02/22/19 08:46 Resp 18 02/22/19 06:46 BP 124/60 02/22/19 08:46 Pulse Ox 96 02/22/19 06:46 Intake & Output 02/21/19 02/22/19 02/22/19 18:59 06:59 18:59 Intake Total 120 320 320 Balance 120 320 320 Intake: Oral 120 320 320 Other: # Voids 3 3 # Bowel Movements 1 Stool Characteristics Soft Soft Soft Active Medications: Current Medications Acetaminophen (Tylenol) 650 mg PO Q4HR PRN PRN Reason: Moderate Pain / Temp above 100 Stop: 04/18/19 06:31 Acetaminophen (Tylenol Extra Strength) 500 mg PO Q6H PRN PRN Reason: Pain (Mild) Stop: 04/18/19 07:44 Albuterol Sulfate (Albuterol 2.5mg/3ml Neb Ud) 2.5 mg HHN Q4H PRN PRN Reason: Shortness of Breath Stop: 04/18/19 07:34 Amlodipine Besylate (Norvasc) 2.5 mg PO DAILY [facility] Stop: 04/18/19 08:59 Last Admin: 02/22/19 08:46 Dose: 2.5 mg Atorvastatin Calcium (Lipitor) 20 mg PO [facility]; Protocol Stop: 04/18/19 20:59 Last Admin: 02/21/19 20:43 Dose: 20 mg Bisacodyl (Dulcolax 10 Mg Supp) 10 mg RC DAILY PRN PRN Reason: Constipation Stop: 04/18/19 07:37 Clopidogrel Bisulfate (Plavix) 75 mg PO DAILY [facility] Stop: 04/18/19 08:59 Last Admin: 02/22/19 08:46 Dose: 75 mg Docusate Sodium (Colace) 100 mg PO BID PRN PRN Reason: Constipation Stop: 04/18/19 08:59 Last Admin: 02/17/19 16:22 Dose: 100 mg Escitalopram Oxalate (Lexapro) 10 mg PO DAILY [facility]; Protocol Stop: 04/18/19 08:59 Last Admin: 02/22/19 08:46 Dose: 10 mg Folic Acid (Folate) 1 mg PO DAILY [facility] Stop: 04/18/19 08:59 Last Admin: 02/22/19 08:46 Dose: 1 mg Hydrochlorothiazide (Hctz) 12.5 mg PO DAILY [facility] Stop: 04/18/19 08:59 Last Admin: 02/22/19 08:44 Dose: 12.5 mg Lorazepam (Ativan) 0.5 mg PO Q4HR PRN; Protocol PRN Reason: Anxiety Stop: 03/19/19 06:31 Last Admin: 02/21/19 22:47 Dose: 0.5 mg Losartan Potassium (Cozaar) 50 mg PO DAILY [facility] Stop: 04/18/19 08:59 Last Admin: 02/22/19 08:45 Dose: 50 mg Magnesium Hydroxide (Milk Of Magnesia) 30 ml PO HS PRN PRN Reason: Constipation Stop: 04/18/19 07:39 Metoprolol Tartrate (Lopressor) 25 mg PO BID [facility] Stop: 04/18/19 08:59 Last Admin: 02/22/19 08:45 Dose: 25 mg Multivitamins/Vitamin C (Theragran) 1 tab PO DAILY [facility] Stop: 04/18/19 08:59 Last Admin: 02/22/19 08:45 Dose: 1 tab Tamsulosin HCl (Flomax) 0.4 mg PO HS [facility] Stop: 04/18/19 20:59 Last Admin: 02/21/19 20:44 Dose: 0.4 mg Thiamine HCl (Vitamin B1) 100 mg PO DAILY [facility] Stop: 04/18/19 08:59 Last Admin: 02/22/19 08:45 Dose: 100 mg Warfarin Sodium (Coumadin) 3 mg PO 1700 [facility]; Protocol Stop: 02/26/19 16:59 Last Admin: 02/21/19 16:48 Dose: 3 mg Warfarin Sodium (Coumadin Per Pharmacy) 1 ea MC 1700 [facility]; Protocol Stop: 04/18/19 16:59 Zolpidem Tartrate (Ambien) 5 mg PO HS PRN PRN Reason: Insomnia Stop: 04/18/19 06:31 Last Admin: 02/21/19 20:44 Dose: 5 mg General: demented HEENT: NC/AT, PERRLA, EOMI, thinning hair, poor dentition Neck: Supple, No JVD Lungs: CTAB Cardiovascular: RRR, Normal S1, Normal S2 Abdomen: soft, non-tender, non-distended, positive bowel sound Extremities: excoriation Neurological: no change, disorganized Internal Medicine Assmt/Plan - Assessment Assessment: ASSESSMENT AND PLAN: 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 - Plan Plan: PLAN: (the patient is oxygen dependent). Continue oxygen, bronchodilator treatments, continue anticoagulation. Pharmacy will be following. Continue on current antihypertensive medication. We will make some adjustment, continue statin. Continue Flomax. Continue with current care. Nutritional Asmnt/Malnutr-PDOC - Dietary Evaluation Malnutrition Findings (Please click <Entered> for more info): Nutritional Asmnt/Malnutrition Start: 02/17/19 16: 01 Text: Status: Complete Freq: Protocol: Document 02/17/19 16:02 PATRICIA (Rec: 02/17/19 16:06 PATRICIA [id number]) Nutritional Asmnt/Malnutrition Patient General Information Nutritional Screening Moderate Risk Consult Diagnosis Depression, FTT Pertinent Medical Hx/Surgical Hx HTN, RN stated Pt had a previous stroke (No H&P Report , limited Hx) Subjective Information IA, Consult: FTT Pt is a 63-year-old male admitted on 02/17 c/o drinking too much with associated depression. Received consult for Failure to Thrive. Visited Pt in room, pt was awake and alert. Pt stated he has not had anything to drink in 5-6 years. He stated he has lost 25# in the last few months. I had nurse, Carla, recheck pts weight as he did not appear obese. His current weight is 127 LB (57.73 kg), this is a correction from his [employer] stats having his weight at 220#. Pt did not seem to have fat/muscle wasting at the temples, under eyes, or near the clavicle, but did seem overall skinny. Asked pt how his appetite has been, he stated fine, but DOCKET SPECIALIST reported he only ate 25% breakfast and lunch. I offered pt a snack, asking if he was hungry right now. He said yes. I brought him an Ensure Enlive, chocolate is his favorite flavor, and egg salad sandwich and some pears. I told pt to do his best to eat at dinner time and drink liquids to help with his constipation. He stated OK. Pt was alert and seemed to understand, however was also a little unfocused and may have been confused. Spoke with Carla about offering him snacks between meals. Will add Ensure Enlive TID. HT: 511 WT: 127 LB (57.73 kg) BMI: 17.7 (Underweight) GI: Flat, Soft BM: Not noted, Constipation Skin: WNL, Intact, no edema present Alessandro: 14 Diet Order: Cardiac Estimated Energy Needs: ( Underweight, CBW) 1239-8152 kcals (30-35 kcals/ kg) 58-70g Pro (1.0-1.2 g/kg) 9712-9245 ml (25-30 ml/kg) Current Diet Order/ Nutrition Support Cardiac Pertinent Medications Albuterol, Lipitor, Plavix, Colace, Folate, Hydrochlorothiazide, Cozaar, MOM (PRN), Flomax, Vitamin B1, Coumadin Pertinent Labs No current labs to report Nutritional Hx/Data Height 1.8 m Height (Calculated Centimeters) 180.3 Current Weight (lbs) 57.606 kg Weight (Calculated Kilograms) 57.6 Weight (Calculated Grams) 65408.2 [place] Body Weight 172 LB (78.18 kg) % [place] Body Weight 74 Body Mass Index (BMI) 17.6 Weight Status Underweight GI Symptoms GI Symptoms Constipation Last BM Not noted, Constipation Skin Integrity/Comment: Skin: WNL, Intact, no edema present Alessandro: 14 Estimated Nutritional Goals BEE in Kcals: Using Current wt Calories/Kcals/Kg 30-35 Kcals Calculated 5844-2018 Protein: Using Current wt Protein g/k.0-1.2 Protein Calculated 58-70 Fluid: ml 4550-4942 ml (25-30 ml/kg) Nutritional Problem 1. Problem Problem Underweight Etiology r/t consistent inadequate energy intake Signs/Symptoms: aeb BMI 17.7, and PO intake 25 % meals. Malnutrition Related to Morbid Obesity Malnutrition related to morbid obesity No Intervention/Recommendation Comments 1.Continue with Cardiac diet as ordered. 2.Add Ensure Enlive TID ( completed). Expected Outcomes/Goals Expected Outcomes/Goals 1. PO intake to meet 75% of nutritional needs. 2. Monitor PO intake, wt, nutrition related labs, and skin integrity. 3. F/U as moderate risk in 3-5 days, 02/20-02/22
--- NOTE | 2019-02-22 18:49 | Progress Notes ---
DATE: 02/22/2019 SUBJECTIVE: Chart reviewed and the patient interviewed. Also discussed the patient's condition with the staff and reviewed records and labs. The patient is still confused and anxious. The patient also is still easily agitated and argumentative. The patient also is staying in bed most of the time and wants to be left alone and seems to be in a depressed mood and at the same time angry. The patient also is forgetful and needs redirections. Otherwise, the patient is compliant with taking Lexapro 10 mg every day with no side effects. ASSESSMENT: The patient is still depressed and needs close monitoring. TREATMENT PLAN: We will continue monitoring his behavior and his condition closely. Also, continue Lexapro in a dose of 10 mg every day. Also, continue working on his ineffective coping and we will continue to follow up. JOB# [id number]
[2019-02-22] MEDS: Atorvastatin Calcium 10 MG TAB PO SCH (20:08)
--- NOTE | 2019-02-23 08:37 | Progress Notes ---
DATE: SUBJECTIVE: Chart reviewed and the patient interviewed. Also discussed the patient's condition with the staff and reviewed records and labs. The patient is still restless and is still anxious. The patient also is still argumentative and his affect is labile and is still easily agitated. He also is still in a depressed mood and wants to be left alone. Otherwise, the patient is compliant with taking his medications with no side effects of medications. The patient is taking Lexapro 10 mg every day. He denies any intention to harm himself or others. ASSESSMENT: The patient is still depressed and agitated. TREATMENT PLAN: Continue monitoring his behavior. Also, we will add Risperdal in a dose of 0.5 mg at bedtime and we will continue to follow up. JOB# [id number]
[2019-02-23] MEDS: Multivitamin Tab PO SCH (08:39)
--- NOTE | 2019-02-23 12:50 | Internal Medicine Prog Note ---
Internal Medicine Subjective - Subjective Patient seen and examined:: with staff, chart reviewed Patient is:: awake, verbal, non-interactive, in bed Per staff patient has:: no adverse event, no episodes of fall, poor appetite, tolerating meds Internal Medicine Objective - Physical Exam Vitals and I&O: Vital Signs Temp 98.0 F 02/23/19 06:04 Pulse 77 02/23/19 08:41 Resp 20 02/23/19 06:04 BP 128/76 02/23/19 08:41 Pulse Ox 93 02/23/19 06:04 Intake & Output 02/22/19 02/23/19 02/23/19 18:59 06:59 18:59 Intake Total 320 120 Balance 320 120 Intake: Oral 320 120 Other: # Voids 1 # Bowel Movements 0 Stool Characteristics Soft Active Medications: Current Medications Acetaminophen (Tylenol) 650 mg PO Q4HR PRN PRN Reason: Moderate Pain / Temp above 100 Stop: 04/18/19 06:31 Acetaminophen (Tylenol Extra Strength) 500 mg PO Q6H PRN PRN Reason: Pain (Mild) Stop: 04/18/19 07:44 Albuterol Sulfate (Albuterol 2.5mg/3ml Neb Ud) 2.5 mg HHN Q4H PRN PRN Reason: Shortness of Breath Stop: 04/18/19 07:34 Amlodipine Besylate (Norvasc) 2.5 mg PO DAILY [facility] Stop: 04/18/19 08:59 Last Admin: 02/23/19 08:39 Dose: 2.5 mg Atorvastatin Calcium (Lipitor) 20 mg PO HS [facility]; Protocol Stop: 04/18/19 20:59 Last Admin: 02/22/19 20:08 Dose: 20 mg Bisacodyl (Dulcolax 10 Mg Supp) 10 mg RC DAILY PRN PRN Reason: Constipation Stop: 04/18/19 07:37 Clopidogrel Bisulfate (Plavix) 75 mg PO DAILY [facility] Stop: 04/18/19 08:59 Last Admin: 02/23/19 08:41 Dose: 75 mg Docusate Sodium (Colace) 100 mg PO BID PRN PRN Reason: Constipation Stop: 04/18/19 08:59 Last Admin: 02/17/19 16:22 Dose: 100 mg Escitalopram Oxalate (Lexapro) 10 mg PO DAILY [facility]; Protocol Stop: 04/18/19 08:59 Last Admin: 02/23/19 08:39 Dose: 10 mg Folic Acid (Folate) 1 mg PO DAILY [facility] Stop: 04/18/19 08:59 Last Admin: 02/23/19 08:39 Dose: 1 mg Hydrochlorothiazide (Hctz) 12.5 mg PO DAILY [facility] Stop: 04/18/19 08:59 Last Admin: 02/23/19 08:41 Dose: 12.5 mg Lorazepam (Ativan) 0.5 mg PO Q4HR PRN; Protocol PRN Reason: Anxiety Stop: 03/19/19 06:31 Last Admin: 02/21/19 22:47 Dose: 0.5 mg Losartan Potassium (Cozaar) 50 mg PO DAILY [facility] Stop: 04/18/19 08:59 Last Admin: 02/23/19 08:41 Dose: 50 mg Magnesium Hydroxide (Milk Of Magnesia) 30 ml PO HS PRN PRN Reason: Constipation Stop: 04/18/19 07:39 Metoprolol Tartrate (Lopressor) 25 mg PO BID [facility] Stop: 04/18/19 08:59 Last Admin: 02/23/19 08:40 Dose: 25 mg Multivitamins/Vitamin C (Theragran) 1 tab PO DAILY [facility] Stop: 04/18/19 08:59 Last Admin: 02/23/19 08:39 Dose: 1 tab Risperidone (Risperdal) 0.25 mg PO HS [facility]; Protocol Stop: 04/24/19 20:59 Tamsulosin HCl (Flomax) 0.4 mg PO HS [facility] Stop: 04/18/19 20:59 Last Admin: 02/22/19 20:08 Dose: 0.4 mg Thiamine HCl (Vitamin B1) 100 mg PO DAILY [facility] Stop: 04/18/19 08:59 Last Admin: 02/23/19 08:40 Dose: 100 mg Warfarin Sodium (Coumadin) 3 mg PO 1700 [facility]; Protocol Stop: 02/26/19 16:59 Last Admin: 02/22/19 18:02 Dose: 3 mg Warfarin Sodium (Coumadin Per Pharmacy) 1 ea [facility]00 [facility]; Protocol Stop: 04/18/19 16:59 Zolpidem Tartrate (Ambien) 5 mg PO HS PRN PRN Reason: Insomnia Stop: 04/18/19 06:31 Last Admin: 02/22/19 20:08 Dose: 5 mg General: demented HEENT: NC/AT, PERRLA, EOMI, thinning hair, poor dentition Neck: Supple, No JVD Lungs: CTAB Cardiovascular: RRR, Normal S1, Normal S2 Abdomen: soft, non-tender, non-distended, positive bowel sound Extremities: excoriation Neurological: no change, disorganized Internal Medicine Assmt/Plan - Assessment Assessment: ASSESSMENT AND PLAN: 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 - Plan Plan: PLAN: (the patient is oxygen dependent). Continue oxygen, bronchodilator treatments, continue anticoagulation. Pharmacy will be following. Continue on current antihypertensive medication. We will make some adjustment, continue statin. Continue Flomax. Continue with current care. Nutritional Asmnt/Malnutr-PDOC - Dietary Evaluation Malnutrition Findings (Please click <Entered> for more info): Nutritional Asmnt/Malnutrition Start: 02/17/19 16: 01 Text: Status: Complete Freq: Protocol: Document 02/17/19 16:02 PATRICIA (Rec: 02/17/19 16:06 PATRICIA [email or web address]) Nutritional Asmnt/Malnutrition Patient General Information Nutritional Screening Moderate Risk Consult Diagnosis Depression, FTT Pertinent Medical Hx/Surgical Hx HTN, RN stated Pt had a previous stroke (No H&P Report , limited Hx) Subjective Information IA, Consult: FTT Pt is a 63-year-old male admitted on 02/17 c/o drinking too much with associated depression. Received consult for Failure to Thrive. Visited Pt in room, pt was awake and alert. Pt stated he has not had anything to drink in 5-6 years. He stated he has lost 25# in the last few months. I had nurse, Carla, recheck pts weight as he did not appear obese. His current weight is 127 LB (57.73 kg), this is a correction from his [facility] stats having his weight at 220#. Pt did not seem to have fat/muscle wasting at the temples, under eyes, or near the clavicle, but did seem overall skinny. Asked pt how his appetite has been, he stated fine, but CODING TECH reported he only ate 25% breakfast and lunch. I offered pt a snack, asking if he was hungry right now. He said yes. I brought him an Ensure Enlive, chocolate is his favorite flavor, and egg salad sandwich and some pears. I told pt to do his best to eat at dinner time and drink liquids to help with his constipation. He stated OK. Pt was alert and seemed to understand, however was also a little unfocused and may have been confused. Spoke with Carla about offering him snacks between meals. Will add Ensure Enlive TID. HT: 511 WT: 127 LB (57.73 kg) BMI: 17.7 (Underweight) GI: Flat, Soft BM: Not noted, Constipation Skin: WNL, Intact, no edema present Alessandro: 14 Diet Order: Cardiac Estimated Energy Needs: ( Underweight, CBW) 2302-2545 kcals (30-35 kcals/ kg) 58-70g Pro (1.0-1.2 g/kg) 5782-7709 ml (25-30 ml/kg) Current Diet Order/ Nutrition Support Cardiac Pertinent Medications Albuterol, Lipitor, Plavix, Colace, Folate, Hydrochlorothiazide, Cozaar, MOM (PRN), Flomax, Vitamin B1, Coumadin Pertinent Labs No current labs to report Nutritional Hx/Data Height 1.8 m Height (Calculated Centimeters) 180.3 Current Weight (lbs) 57.606 kg Weight (Calculated Kilograms) 57.6 Weight (Calculated Grams) 10472.2 [place] Body Weight 172 LB (78.18 kg) % [place] Body Weight 74 Body Mass Index (BMI) 17.6 Weight Status Underweight GI Symptoms GI Symptoms Constipation Last BM Not noted, Constipation Skin Integrity/Comment: Skin: WNL, Intact, no edema present Alessandro: 14 Estimated Nutritional Goals BEE in Kcals: Using Current wt Calories/Kcals/Kg 30-35 Kcals Calculated 2419-1572 Protein: Using Current wt Protein g/k.0-1.2 Protein Calculated 58-70 Fluid: ml 7983-9006 ml (25-30 ml/kg) Nutritional Problem 1. Problem Problem Underweight Etiology r/t consistent inadequate energy intake Signs/Symptoms: aeb BMI 17.7, and PO intake 25 % meals. Malnutrition Related to Morbid Obesity Malnutrition related to morbid obesity No Intervention/Recommendation Comments 1.Continue with Cardiac diet as ordered. 2.Add Ensure Enlive TID ( completed). Expected Outcomes/Goals Expected Outcomes/Goals 1. PO intake to meet 75% of nutritional needs. 2. Monitor PO intake, wt, nutrition related labs, and skin integrity. 3. F/U as moderate risk in 3-5 days, 02/20-02/22
[2019-02-23] MEDS: Atorvastatin Calcium 10 MG TAB PO SCH (21:50)
[2019-02-24] MEDS: Multivitamin Tab PO SCH ×2 (09:00)
--- NOTE | 2019-02-24 12:36 | Internal Medicine Prog Note ---
Internal Medicine Subjective - Subjective Patient seen and examined:: with staff, chart reviewed Patient is:: awake, verbal, non-interactive, in bed Per staff patient has:: no adverse event, no episodes of fall, poor appetite, tolerating meds Internal Medicine Objective - Physical Exam Vitals and I&O: Vital Signs Temp 97.5 F 02/24/19 06:11 Pulse 90 02/24/19 08:55 Resp 20 02/24/19 06:11 BP 114/73 02/24/19 08:55 Pulse Ox 96 02/24/19 06:11 Intake & Output 02/23/19 02/24/19 02/24/19 18:59 06:59 18:59 Intake Total 900 120 Balance 900 120 Intake: Oral 900 120 Other: # Voids 3 5 # Bowel Movements 1 0 Active Medications: Current Medications Acetaminophen (Tylenol) 650 mg PO Q4HR PRN PRN Reason: Moderate Pain / Temp above 100 Stop: 04/18/19 06:31 Acetaminophen (Tylenol Extra Strength) 500 mg PO Q6H PRN PRN Reason: Pain (Mild) Stop: 04/18/19 07:44 Albuterol Sulfate (Albuterol 2.5mg/3ml Neb Ud) 2.5 mg HHN Q4H PRN PRN Reason: Shortness of Breath Stop: 04/18/19 07:34 Amlodipine Besylate (Norvasc) 2.5 mg PO DAILY [facility] Stop: 04/18/19 08:59 Last Admin: 02/23/19 08:39 Dose: 2.5 mg Atorvastatin Calcium (Lipitor) 20 mg PO HS [facility]; Protocol Stop: 04/18/19 20:59 Last Admin: 02/23/19 21:50 Dose: 20 mg Bisacodyl (Dulcolax 10 Mg Supp) 10 mg RC DAILY PRN PRN Reason: Constipation Stop: 04/18/19 07:37 Clopidogrel Bisulfate (Plavix) 75 mg PO DAILY [facility] Stop: 04/18/19 08:59 Last Admin: 02/24/19 08:55 Dose: 75 mg Docusate Sodium (Colace) 100 mg PO BID PRN PRN Reason: Constipation Stop: 04/18/19 08:59 Last Admin: 02/24/19 08:56 Dose: 100 mg Escitalopram Oxalate (Lexapro) 10 mg PO DAILY [facility]; Protocol Stop: 04/18/19 08:59 Last Admin: 02/24/19 08:55 Dose: 10 mg Folic Acid (Folate) 1 mg PO DAILY [facility] Stop: 04/18/19 08:59 Last Admin: 02/24/19 08:55 Dose: 1 mg Hydrochlorothiazide (Hctz) 12.5 mg PO DAILY [facility] Stop: 04/18/19 08:59 Last Admin: 02/23/19 08:41 Dose: 12.5 mg Lorazepam (Ativan) 0.5 mg PO Q4HR PRN; Protocol PRN Reason: Anxiety Stop: 03/19/19 06:31 Last Admin: 02/24/19 08:55 Dose: 0.5 mg Losartan Potassium (Cozaar) 50 mg PO DAILY [facility] Stop: 04/18/19 08:59 Last Admin: 02/23/19 08:41 Dose: 50 mg Magnesium Hydroxide (Milk Of Magnesia) 30 ml PO HS PRN PRN Reason: Constipation Stop: 04/18/19 07:39 Metoprolol Tartrate (Lopressor) 25 mg PO BID [facility] Stop: 04/18/19 08:59 Last Admin: 02/24/19 08:55 Dose: 25 mg Multivitamins/Vitamin C (Theragran) 1 tab PO DAILY [facility] Stop: 04/18/19 08:59 Last Admin: 02/23/19 08:39 Dose: 1 tab Risperidone (Risperdal) 0.25 mg PO HS [facility]; Protocol Stop: 04/24/19 20:59 Last Admin: 02/23/19 21:50 Dose: 0.25 mg Tamsulosin HCl (Flomax) 0.4 mg PO HS [facility] Stop: 04/18/19 20:59 Last Admin: 02/23/19 21:50 Dose: 0.4 mg Thiamine HCl (Vitamin B1) 100 mg PO DAILY [facility] Stop: 04/18/19 08:59 Last Admin: 02/24/19 08:55 Dose: 100 mg Warfarin Sodium (Coumadin) 3 mg PO 1700 [facility]; Protocol Stop: 02/26/19 16:59 Last Admin: 02/23/19 17:42 Dose: 3 mg Warfarin Sodium (Coumadin Per Pharmacy) 1 ea 1700 [facility]; Protocol Stop: 04/18/19 16:59 Zolpidem Tartrate (Ambien) 5 mg PO HS PRN PRN Reason: Insomnia Stop: 04/18/19 06:31 Last Admin: 02/23/19 21:50 Dose: 5 mg General: demented HEENT: NC/AT, PERRLA, EOMI, thinning hair, poor dentition Neck: Supple, No JVD Lungs: CTAB Cardiovascular: RRR, Normal S1, Normal S2 Abdomen: soft, non-tender, non-distended, positive bowel sound Extremities: excoriation Neurological: no change, disorganized Internal Medicine Assmt/Plan - Assessment Assessment: ASSESSMENT AND PLAN: 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 - Plan Plan: PLAN: (the patient is oxygen dependent). Continue oxygen, bronchodilator treatments, continue anticoagulation. Pharmacy will be following. Continue on current antihypertensive medication. We will make some adjustment, continue statin. Continue Flomax. Continue with current care. Nutritional Asmnt/Malnutr-PDOC - Dietary Evaluation Malnutrition Findings (Please click <Entered> for more info): Nutritional Asmnt/Malnutrition Start: 02/17/19 16: 01 Text: Status: Complete Freq: Protocol: Document 02/17/19 16:02 PATRICIA (Rec: 02/17/19 16:06 PATRICIA [email or web address]) Nutritional Asmnt/Malnutrition Patient General Information Nutritional Screening Moderate Risk Consult Diagnosis Depression, FTT Pertinent Medical Hx/Surgical Hx HTN, RN stated Pt had a previous stroke (No H&P Report , limited Hx) Subjective Information IA, Consult: FTT Pt is a 63-year-old male admitted on 02/17 c/o drinking too much with associated depression. Received consult for Failure to Thrive. Visited Pt in room, pt was awake and alert. Pt stated he has not had anything to drink in 5-6 years. He stated he has lost 25# in the last few months. I had nurse, Carla, recheck pts weight as he did not appear obese. His current weight is 127 LB (57.73 kg), this is a correction from his [place] stats having his weight at 220#. Pt did not seem to have fat/muscle wasting at the temples, under eyes, or near the clavicle, but did seem overall skinny. Asked pt how his appetite has been, he stated fine, but OPERATIONS AND MAINTENANCE TECHNICIAN reported he only ate 25% breakfast and lunch. I offered pt a snack, asking if he was hungry right now. He said yes. I brought him an Ensure Enlive, chocolate is his favorite flavor, and egg salad sandwich and some pears. I told pt to do his best to eat at dinner time and drink liquids to help with his constipation. He stated OK. Pt was alert and seemed to understand, however was also a little unfocused and may have been confused. Spoke with Carla about offering him snacks between meals. Will add Ensure Enlive TID. HT: 511 WT: 127 LB (57.73 kg) BMI: 17.7 (Underweight) GI: Flat, Soft BM: Not noted, Constipation Skin: WNL, Intact, no edema present Alessandro: 14 Diet Order: Cardiac Estimated Energy Needs: ( Underweight, CBW) 7579-0716 kcals (30-35 kcals/ kg) 58-70g Pro (1.0-1.2 g/kg) 4437-9646 ml (25-30 ml/kg) Current Diet Order/ Nutrition Support Cardiac Pertinent Medications Albuterol, Lipitor, Plavix, Colace, Folate, Hydrochlorothiazide, Cozaar, MOM (PRN), Flomax, Vitamin B1, Coumadin Pertinent Labs No current labs to report Nutritional Hx/Data Height 1.8 m Height (Calculated Centimeters) 180.3 Current Weight (lbs) 57.606 kg Weight (Calculated Kilograms) 57.6 Weight (Calculated Grams) 55614.2 [place] Body Weight 172 LB (78.18 kg) % [place] Body Weight 74 Body Mass Index (BMI) 17.6 Weight Status Underweight GI Symptoms GI Symptoms Constipation Last BM Not noted, Constipation Skin Integrity/Comment: Skin: WNL, Intact, no edema present Alessandro: 14 Estimated Nutritional Goals BEE in Kcals: Using Current wt Calories/Kcals/Kg 30-35 Kcals Calculated 8098-9724 Protein: Using Current wt Protein g/k.0-1.2 Protein Calculated 58-70 Fluid: ml 6016-1978 ml (25-30 ml/kg) Nutritional Problem 1. Problem Problem Underweight Etiology r/t consistent inadequate energy intake Signs/Symptoms: aeb BMI 17.7, and PO intake 25 % meals. Malnutrition Related to Morbid Obesity Malnutrition related to morbid obesity No Intervention/Recommendation Comments 1.Continue with Cardiac diet as ordered. 2.Add Ensure Enlive TID ( completed). Expected Outcomes/Goals Expected Outcomes/Goals 1. PO intake to meet 75% of nutritional needs. 2. Monitor PO intake, wt, nutrition related labs, and skin integrity. 3. F/U as moderate risk in 3-5 days, 02/20-02/22
[2019-02-24] MEDS: Atorvastatin Calcium 10 MG TAB PO SCH (21:05)
--- NOTE | 2019-02-25 00:40 | Progress Notes ---
DATE: 02/24/2019 SUBJECTIVE: A 63-year-old male transferred from [place] [facility], who is depressed, cannot stop drinking. The patient stating to me on exam that he lives at home, he remains pretty depressed, withdrawn, mostly in bed, ongoing melancholy depression. Dr. Fiore has seen the patient yesterday, noting he was restless, anxious, wanting to be left alone. ASSESSMENT: The patient remains symptomatic, ongoing depressive symptoms, quiet, withdrawn, needing a high level of nursing care, easily agitated. Medications were noted. JOB# [id number]
[2019-02-25] MEDS: Multivitamin Tab PO SCH (08:24)
--- NOTE | 2019-02-25 13:08 | Internal Medicine Prog Note ---
Internal Medicine Subjective - Subjective Patient seen and examined:: with staff, chart reviewed Patient is:: awake, verbal, non-interactive, in bed Per staff patient has:: no adverse event, no episodes of fall, poor appetite, tolerating meds Internal Medicine Objective - Physical Exam Vitals and I&O: Vital Signs Temp 97.3 F 02/25/19 06:24 Pulse 104 02/25/19 08:39 Resp 18 02/25/19 06:24 BP 145/74 02/25/19 08:39 Pulse Ox 96 02/25/19 06:24 Intake & Output 02/24/19 02/25/19 02/25/19 18:59 06:59 18:59 Intake Total 860 120 Balance 860 120 Intake: Oral 740 120 Other 120 Other: # Voids 3 3 # Bowel Movements 0 Stool Characteristics Soft Active Medications: Current Medications Acetaminophen (Tylenol) 650 mg PO Q4HR PRN PRN Reason: Moderate Pain / Temp above 100 Stop: 04/18/19 06:31 Acetaminophen (Tylenol Extra Strength) 500 mg PO Q6H PRN PRN Reason: Pain (Mild) Stop: 04/18/19 07:44 Albuterol Sulfate (Albuterol 2.5mg/3ml Neb Ud) 2.5 mg HHN Q4H PRN PRN Reason: Shortness of Breath Stop: 04/18/19 07:34 Amlodipine Besylate (Norvasc) 2.5 mg PO DAILY [facility] Stop: 04/18/19 08:59 Last Admin: 02/25/19 08:39 Dose: 2.5 mg Atorvastatin Calcium (Lipitor) 20 mg PO [facility]; Protocol Stop: 04/18/19 20:59 Last Admin: 02/24/19 21:05 Dose: 20 mg Bisacodyl (Dulcolax 10 Mg Supp) 10 mg RC DAILY PRN PRN Reason: Constipation Stop: 04/18/19 07:37 Clopidogrel Bisulfate (Plavix) 75 mg PO DAILY [facility] Stop: 04/18/19 08:59 Last Admin: 02/25/19 08:24 Dose: 75 mg Docusate Sodium (Colace) 100 mg PO BID PRN PRN Reason: Constipation Stop: 04/18/19 08:59 Last Admin: 02/24/19 08:56 Dose: 100 mg Escitalopram Oxalate (Lexapro) 10 mg PO DAILY [facility]; Protocol Stop: 04/18/19 08:59 Last Admin: 02/25/19 08:24 Dose: 10 mg Folic Acid (Folate) 1 mg PO DAILY [facility] Stop: 04/18/19 08:59 Last Admin: 02/25/19 08:24 Dose: 1 mg Hydrochlorothiazide (Hctz) 12.5 mg PO DAILY [facility] Stop: 04/18/19 08:59 Last Admin: 02/25/19 08:31 Dose: 12.5 mg Lorazepam (Ativan) 0.5 mg PO Q4HR PRN; Protocol PRN Reason: Anxiety Stop: 03/19/19 06:31 Last Admin: 02/24/19 08:55 Dose: 0.5 mg Losartan Potassium (Cozaar) 50 mg PO DAILY [facility] Stop: 04/18/19 08:59 Last Admin: 02/25/19 08:38 Dose: 50 mg Magnesium Hydroxide (Milk Of Magnesia) 30 ml PO HS PRN PRN Reason: Constipation Stop: 04/18/19 07:39 Metoprolol Tartrate (Lopressor) 25 mg PO BID [facility] Stop: 04/18/19 08:59 Last Admin: 02/25/19 08:29 Dose: 25 mg Multivitamins/Vitamin C (Theragran) 1 tab PO DAILY [facility] Stop: 04/18/19 08:59 Last Admin: 02/25/19 08:24 Dose: 1 tab Risperidone (Risperdal) 0.25 mg PO HS [facility]; Protocol Stop: 04/24/19 20:59 Last Admin: 02/24/19 21:05 Dose: 0.25 mg Tamsulosin HCl (Flomax) 0.4 mg PO HS [facility] Stop: 04/18/19 20:59 Last Admin: 02/24/19 21:05 Dose: 0.4 mg Thiamine HCl (Vitamin B1) 100 mg PO DAILY [facility] Stop: 04/18/19 08:59 Last Admin: 02/25/19 08:25 Dose: 100 mg Warfarin Sodium (Coumadin) 3 mg PO 1700 [facility]; Protocol Stop: 02/26/19 16:59 Last Admin: 02/24/19 16:15 Dose: 3 mg Warfarin Sodium (Coumadin Per Pharmacy) 1 ea 1700 [facility]; Protocol Stop: 04/18/19 16:59 Warfarin Sodium (Coumadin) 2 mg PO QPM [facility] Stop: 02/25/19 17:01 Last Admin: 02/24/19 16:12 Dose: 2 mg Zolpidem Tartrate (Ambien) 5 mg PO HS PRN PRN Reason: Insomnia Stop: 04/18/19 06:31 Last Admin: 02/24/19 21:05 Dose: 5 mg General: demented HEENT: NC/AT, PERRLA, EOMI, thinning hair, poor dentition Neck: Supple, No JVD Lungs: CTAB Cardiovascular: RRR, Normal S1, Normal S2 Abdomen: soft, non-tender, non-distended, positive bowel sound Extremities: excoriation Neurological: no change, disorganized Internal Medicine Assmt/Plan - Assessment Assessment: ASSESSMENT AND PLAN: 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 - Plan Plan: PLAN: (the patient is oxygen dependent). Continue oxygen, bronchodilator treatments, continue anticoagulation. Pharmacy will be following. Continue on current antihypertensive medication. We will make some adjustment, continue statin. Continue Flomax. Continue with current care. Nutritional Asmnt/Malnutr-PDOC - Dietary Evaluation Malnutrition Findings (Please click <Entered> for more info): Nutritional Asmnt/Malnutrition Start: 02/17/19 16: 01 Text: Status: Complete Freq: Protocol: Document 02/17/19 16:02 PATRICIA (Rec: 02/17/19 16:06 PATRICIA [email or web address]) Nutritional Asmnt/Malnutrition Patient General Information Nutritional Screening Moderate Risk Consult Diagnosis Depression, FTT Pertinent Medical Hx/Surgical Hx HTN, RN stated Pt had a previous stroke (No H&P Report , limited Hx) Subjective Information IA, Consult: FTT Pt is a 63-year-old male admitted on 02/17 c/o drinking too much with associated depression. Received consult for Failure to Thrive. Visited Pt in room, pt was awake and alert. Pt stated he has not had anything to drink in 5-6 years. He stated he has lost 25# in the last few months. I had nurse, Carla, recheck pts weight as he did not appear obese. His current weight is 127 LB (57.73 kg), this is a correction from his [place] stats having his weight at 220#. Pt did not seem to have fat/muscle wasting at the temples, under eyes, or near the clavicle, but did seem overall skinny. Asked pt how his appetite has been, he stated fine, but BILINGUAL RECEPTIONIST reported he only ate 25% breakfast and lunch. I offered pt a snack, asking if he was hungry right now. He said yes. I brought him an Ensure Enlive, chocolate is his favorite flavor, and egg salad sandwich and some pears. I told pt to do his best to eat at dinner time and drink liquids to help with his constipation. He stated OK. Pt was alert and seemed to understand, however was also a little unfocused and may have been confused. Spoke with Carla about offering him snacks between meals. Will add Ensure Enlive TID. HT: 511 WT: 127 LB (57.73 kg) BMI: 17.7 (Underweight) GI: Flat, Soft BM: Not noted, Constipation Skin: WNL, Intact, no edema present Alessandro: 14 Diet Order: Cardiac Estimated Energy Needs: ( Underweight, CBW) 5654-2737 kcals (30-35 kcals/ kg) 58-70g Pro (1.0-1.2 g/kg) 2551-0591 ml (25-30 ml/kg) Current Diet Order/ Nutrition Support Cardiac Pertinent Medications Albuterol, Lipitor, Plavix, Colace, Folate, Hydrochlorothiazide, Cozaar, MOM (PRN), Flomax, Vitamin B1, Coumadin Pertinent Labs No current labs to report Nutritional Hx/Data Height 1.8 m Height (Calculated Centimeters) 180.3 Current Weight (lbs) 57.606 kg Weight (Calculated Kilograms) 57.6 Weight (Calculated Grams) 78915.2 [place] Body Weight 172 LB (78.18 kg) % [place] Body Weight 74 Body Mass Index (BMI) 17.6 Weight Status Underweight GI Symptoms GI Symptoms Constipation Last BM Not noted, Constipation Skin Integrity/Comment: Skin: WNL, Intact, no edema present Alessandro: 14 Estimated Nutritional Goals BEE in Kcals: Using Current wt Calories/Kcals/Kg 30-35 Kcals Calculated 8983-7563 Protein: Using Current wt Protein g/k.0-1.2 Protein Calculated 58-70 Fluid: ml 2387-4087 ml (25-30 ml/kg) Nutritional Problem 1. Problem Problem Underweight Etiology r/t consistent inadequate energy intake Signs/Symptoms: aeb BMI 17.7, and PO intake 25 % meals. Malnutrition Related to Morbid Obesity Malnutrition related to morbid obesity No Intervention/Recommendation Comments 1.Continue with Cardiac diet as ordered. 2.Add Ensure Enlive TID ( completed). Expected Outcomes/Goals Expected Outcomes/Goals 1. PO intake to meet 75% of nutritional needs. 2. Monitor PO intake, wt, nutrition related labs, and skin integrity. 3. F/U as moderate risk in 3-5 days, 02/20-02/22
[2019-02-25] MEDS: Atorvastatin Calcium 10 MG TAB PO SCH (21:33)
--- NOTE | 2019-02-26 03:56 | Progress Notes ---
DATE: 02/25/2019 SUBJECTIVE: The patient is a 63-year-old male transferred from [place] [facility], could not stop drinking. The patient is still withdrawn, refusing to speak with me today, sleeping, arousable, but not wanting to wake up and talk to me. The patient with history of cerebrovascular infarct and left-sided weakness. ASSESSMENT: The patient remains irritable, upset, still withdrawn, ongoing melancholy, somewhat noncooperative with care, noted by staff, difficult to interview today. Medications were noted. PLAN: We will continue to monitor, titrate and adjust medications. JOB# [id number]
[2019-02-26] MEDS: Multivitamin Tab PO SCH (08:48)
--- NOTE | 2019-02-26 12:43 | Internal Medicine Prog Note ---
Internal Medicine Subjective - Subjective Patient seen and examined:: with staff, chart reviewed Patient is:: awake, verbal, non-interactive, in bed Per staff patient has:: no adverse event, no episodes of fall, poor appetite, tolerating meds Internal Medicine Objective - Physical Exam Vitals and I&O: Vital Signs Temp 97.8 F 02/26/19 06:25 Pulse 69 02/26/19 08:48 Resp 18 02/26/19 06:25 BP 132/69 02/26/19 08:48 Pulse Ox 96 02/26/19 06:25 Intake & Output 02/25/19 02/26/19 02/26/19 18:59 06:59 18:59 Intake Total 120 Balance 120 Intake: Oral 120 Other: # Voids 3 Stool Characteristics Soft Active Medications: Current Medications Acetaminophen (Tylenol) 650 mg PO Q4HR PRN PRN Reason: Moderate Pain / Temp above 100 Stop: 04/18/19 06:31 Acetaminophen (Tylenol Extra Strength) 500 mg PO Q6H PRN PRN Reason: Pain (Mild) Stop: 04/18/19 07:44 Albuterol Sulfate (Albuterol 2.5mg/3ml Neb Ud) 2.5 mg HHN Q4H PRN PRN Reason: Shortness of Breath Stop: 04/18/19 07:34 Amlodipine Besylate (Norvasc) 2.5 mg PO DAILY JANNA Stop: 04/18/19 08:59 Last Admin: 02/26/19 08:46 Dose: 2.5 mg Atorvastatin Calcium (Lipitor) 20 mg PO HS JANNA; Protocol Stop: 04/18/19 20:59 Last Admin: 02/25/19 21:33 Dose: 20 mg Bisacodyl (Dulcolax 10 Mg Supp) 10 mg RC DAILY PRN PRN Reason: Constipation Stop: 04/18/19 07:37 Clopidogrel Bisulfate (Plavix) 75 mg PO DAILY JANNA Stop: 04/18/19 08:59 Last Admin: 02/26/19 08:45 Dose: 75 mg Docusate Sodium (Colace) 100 mg PO BID PRN PRN Reason: Constipation Stop: 04/18/19 08:59 Last Admin: 02/24/19 08:56 Dose: 100 mg Escitalopram Oxalate (Lexapro) 10 mg PO DAILY JANNA; Protocol Stop: 04/18/19 08:59 Last Admin: 02/26/19 08:46 Dose: 10 mg Folic Acid (Folate) 1 mg PO DAILY [facility] Stop: 04/18/19 08:59 Last Admin: 02/26/19 08:48 Dose: 1 mg Hydrochlorothiazide (Hctz) 12.5 mg PO DAILY JANNA Stop: 04/18/19 08:59 Last Admin: 02/26/19 08:47 Dose: 12.5 mg Lorazepam (Ativan) 0.5 mg PO Q4HR PRN; Protocol PRN Reason: Anxiety Stop: 03/19/19 06:31 Last Admin: 02/24/19 08:55 Dose: 0.5 mg Losartan Potassium (Cozaar) 50 mg PO DAILY JANNA Stop: 04/18/19 08:59 Last Admin: 02/26/19 08:47 Dose: 50 mg Magnesium Hydroxide (Milk Of Magnesia) 30 ml PO HS PRN PRN Reason: Constipation Stop: 04/18/19 07:39 Metoprolol Tartrate (Lopressor) 25 mg PO BID [facility] Stop: 04/18/19 08:59 Last Admin: 02/26/19 08:48 Dose: 25 mg Multivitamins/Vitamin C (Theragran) 1 tab PO DAILY [facility] Stop: 04/18/19 08:59 Last Admin: 02/26/19 08:48 Dose: 1 tab Risperidone (Risperdal) 0.25 mg PO HS [facility]; Protocol Stop: 04/24/19 20:59 Last Admin: 02/25/19 21:33 Dose: 0.25 mg Tamsulosin HCl (Flomax) 0.4 mg PO HS [facility] Stop: 04/18/19 20:59 Last Admin: 02/25/19 21:33 Dose: 0.4 mg Thiamine HCl (Vitamin B1) 100 mg PO DAILY [facility] Stop: 04/18/19 08:59 Last Admin: 02/26/19 08:46 Dose: 100 mg Warfarin Sodium (Coumadin Per Pharmacy) 1 [facility] 1700 [facility]; Protocol Stop: 04/18/19 16:59 Warfarin Sodium (Coumadin) 5 mg PO QPM [facility] Stop: 02/27/19 17:01 Zolpidem Tartrate (Ambien) 5 mg PO HS PRN PRN Reason: Insomnia Stop: 04/18/19 06:31 Last Admin: 02/24/19 21:05 Dose: 5 mg General: demented HEENT: NC/AT, PERRLA, EOMI, thinning hair, poor dentition Neck: Supple, No JVD Lungs: CTAB Cardiovascular: RRR, Normal S1, Normal S2 Abdomen: soft, non-tender, non-distended, positive bowel sound Extremities: excoriation Neurological: no change, disorganized Internal Medicine Assmt/Plan - Assessment Assessment: ASSESSMENT AND PLAN: 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 - Plan Plan: PLAN: (the patient is oxygen dependent). Continue oxygen, bronchodilator treatments, continue anticoagulation. Pharmacy will be following. Continue on current antihypertensive medication. We will make some adjustment, continue statin. Continue Flomax. Continue with current care. Nutritional Asmnt/Malnutr-PDOC - Dietary Evaluation Malnutrition Findings (Please click <Entered> for more info): Nutritional Asmnt/Malnutrition Start: 02/17/19 16: 01 Text: Status: Complete Freq: Protocol: Document 02/17/19 16:02 PATRICIA (Rec: 02/17/19 16:06 PATRICIA [email or web address]) Nutritional Asmnt/Malnutrition Patient General Information Nutritional Screening Moderate Risk Consult Diagnosis Depression, FTT Pertinent Medical Hx/Surgical Hx HTN, RN stated Pt had a previous stroke (No H&P Report , limited Hx) Subjective Information IA, Consult: FTT Pt is a 63-year-old male admitted on 02/17 c/o drinking too much with associated depression. Received consult for Failure to Thrive. Visited Pt in room, pt was awake and alert. Pt stated he has not had anything to drink in 5-6 years. He stated he has lost 25# in the last few months. I had nurse, Carla, recheck pts weight as he did not appear obese. His current weight is 127 LB (57.73 kg), this is a correction from his [employer] stats having his weight at 220#. Pt did not seem to have fat/muscle wasting at the temples, under eyes, or near the clavicle, but did seem overall skinny. 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 I offered pt a snack, asking if he was hungry right now. He said yes. I brought him an Ensure Enlive, chocolate is his favorite flavor, and egg salad sandwich and some pears. I told pt to do his best to eat at dinner time and drink liquids to help with his constipation. He stated OK. Pt was alert and seemed to understand, however was also a little unfocused and may have been confused. Spoke with Carla about offering him snacks between meals. Will add Ensure Enlive TID. HT: 511 WT: 127 LB (57.73 kg) BMI: 17.7 (Underweight) GI: Flat, Soft BM: Not noted, Constipation Skin: WNL, Intact, no edema present Alessandro: 14 Diet Order: Cardiac Estimated Energy Needs: ( Underweight, CBW) 8478-3298 kcals (30-35 kcals/ kg) 58-70g Pro (1.0-1.2 g/kg) 0360-5505 ml (25-30 ml/kg) Current Diet Order/ Nutrition Support Cardiac Pertinent Medications Albuterol, Lipitor, Plavix, Colace, Folate, Hydrochlorothiazide, Cozaar, MOM (PRN), Flomax, Vitamin B1, Coumadin Pertinent Labs No current labs to report Nutritional Hx/Data Height 1.8 m Height (Calculated Centimeters) 180.3 Current Weight (lbs) 57.606 kg Weight (Calculated Kilograms) 57.6 Weight (Calculated Grams) 63631.2 [place] Body Weight 172 LB (78.18 kg) % [place] Body Weight 74 Body Mass Index (BMI) 17.6 Weight Status Underweight GI Symptoms GI Symptoms Constipation Last BM Not noted, Constipation Skin Integrity/Comment: Skin: WNL, Intact, no edema present Alessandro: 14 Estimated Nutritional Goals BEE in Kcals: Using Current wt Calories/Kcals/Kg 30-35 Kcals Calculated 9231-7803 Protein: Using Current wt Protein g/k.0-1.2 Protein Calculated 58-70 Fluid: ml 0013-9966 ml (25-30 ml/kg) Nutritional Problem 1. Problem Problem Underweight Etiology r/t consistent inadequate energy intake Signs/Symptoms: aeb BMI 17.7, and PO intake 25 % meals. Malnutrition Related to Morbid Obesity Malnutrition related to morbid obesity No Intervention/Recommendation Comments 1.Continue with Cardiac diet as ordered. 2.Add Ensure Enlive TID ( completed). Expected Outcomes/Goals Expected Outcomes/Goals 1. PO intake to meet 75% of nutritional needs. 2. Monitor PO intake, wt, nutrition related labs, and skin integrity. 3. F/U as moderate risk in 3-5 days, 02/20-02/22
--- NOTE | 2019-02-26 17:25 | Progress Notes ---
DATE: 02/26/2019 SUBJECTIVE: The patient is currently in the hospital, refusing to speak with me this morning, wakes up, opens his eyes, then goes back to sleep, does not want to engage. Staff noting he is pretty irritable, mad, upset, easily agitated, withdrawn, mostly keeps to self and isolative. Difficult to interview, unable to really talk to him because he just does not want to talk to me today. Medications were noted. Vitals were reviewed. We will continue to monitor. JOB# [id number]
[2019-02-26] MEDS: Atorvastatin Calcium 10 MG TAB PO SCH (21:31)
[2019-02-27] MEDS: Multivitamin Tab PO SCH (10:53)
--- NOTE | 2019-02-27 12:47 | Internal Medicine Prog Note ---
Internal Medicine Subjective - Subjective Patient seen and examined:: with staff, chart reviewed Patient is:: awake, verbal, non-interactive, in bed Per staff patient has:: no adverse event, no episodes of fall, poor appetite, tolerating meds Internal Medicine Objective - Physical Exam Vitals and I&O: Vital Signs Temp 96.9 F 02/27/19 06:24 Pulse 73 02/27/19 10:53 Resp 20 02/27/19 06:24 BP 119/68 02/27/19 10:53 Pulse Ox 94 02/27/19 06:24 Intake & Output 02/26/19 02/27/19 02/27/19 18:59 06:59 18:59 Intake Total 1500 Balance 1500 Intake: Oral 1500 Other: # Voids 3 # Bowel Movements 2 Active Medications: Current Medications Acetaminophen (Tylenol) 650 mg PO Q4HR PRN PRN Reason: Moderate Pain / Temp above 100 Stop: 04/18/19 06:31 Last Admin: 02/26/19 22:03 Dose: 650 mg Acetaminophen (Tylenol Extra Strength) 500 mg PO Q6H PRN PRN Reason: Pain (Mild) Stop: 04/18/19 07:44 Albuterol Sulfate (Albuterol 2.5mg/3ml Neb Ud) 2.5 mg HHN Q4H PRN PRN Reason: Shortness of Breath Stop: 04/18/19 07:34 Amlodipine Besylate (Norvasc) 2.5 mg PO DAILY JANNA Stop: 04/18/19 08:59 Last Admin: 02/27/19 10:50 Dose: 2.5 mg Atorvastatin Calcium (Lipitor) 20 mg PO [facility]; Protocol Stop: 04/18/19 20:59 Last Admin: 02/26/19 21:31 Dose: 20 mg Bisacodyl (Dulcolax 10 Mg Supp) 10 mg RC DAILY PRN PRN Reason: Constipation Stop: 04/18/19 07:37 Clopidogrel Bisulfate (Plavix) 75 mg PO DAILY JANNA Stop: 04/18/19 08:59 Last Admin: 02/27/19 10:52 Dose: 75 mg Docusate Sodium (Colace) 100 mg PO BID PRN PRN Reason: Constipation Stop: 04/18/19 08:59 Last Admin: 02/27/19 10:51 Dose: 100 mg Escitalopram Oxalate (Lexapro) 10 mg PO DAILY [facility]; Protocol Stop: 04/18/19 08:59 Last Admin: 02/27/19 10:52 Dose: 10 mg Folic Acid (Folate) 1 mg PO DAILY [facility] Stop: 04/18/19 08:59 Last Admin: 02/27/19 10:52 Dose: 1 mg Hydrochlorothiazide (Hctz) 12.5 mg PO DAILY [facility] Stop: 04/18/19 08:59 Last Admin: 02/27/19 10:50 Dose: 12.5 mg Lorazepam (Ativan) 0.5 mg PO Q4HR PRN; Protocol PRN Reason: Anxiety Stop: 03/19/19 06:31 Last Admin: 02/24/19 08:55 Dose: 0.5 mg Losartan Potassium (Cozaar) 50 mg PO DAILY [facility] Stop: 04/18/19 08:59 Last Admin: 02/27/19 10:53 Dose: 50 mg Magnesium Hydroxide (Milk Of Magnesia) 30 ml PO HS PRN PRN Reason: Constipation Stop: 04/18/19 07:39 Metoprolol Tartrate (Lopressor) 25 mg PO BID [facility] Stop: 04/18/19 08:59 Last Admin: 02/27/19 10:53 Dose: 25 mg Multivitamins/Vitamin C (Theragran) 1 tab PO DAILY [facility] Stop: 04/18/19 08:59 Last Admin: 02/27/19 10:53 Dose: 1 tab Risperidone (Risperdal) 0.25 mg PO HS [facility]; Protocol Stop: 04/24/19 20:59 Last Admin: 02/26/19 21:30 Dose: 0.25 mg Tamsulosin HCl (Flomax) 0.4 mg PO HS [facility] Stop: 04/18/19 20:59 Last Admin: 02/26/19 21:31 Dose: 0.4 mg Thiamine HCl (Vitamin B1) 100 mg PO DAILY [facility] Stop: 04/18/19 08:59 Last Admin: 02/27/19 10:52 Dose: 100 mg Warfarin Sodium (Coumadin Per Pharmacy) 1 [facility] 1700 [facility]; Protocol Stop: 04/18/19 16:59 Warfarin Sodium (Coumadin) 5 mg PO QPM [facility] Stop: 02/27/19 17:01 Last Admin: 02/26/19 17:12 Dose: 5 mg Zolpidem Tartrate (Ambien) 5 mg PO HS PRN PRN Reason: Insomnia Stop: 04/18/19 06:31 Last Admin: 02/26/19 21:31 Dose: 5 mg General: demented HEENT: NC/AT, PERRLA, EOMI, thinning hair, poor dentition Neck: Supple, No JVD Lungs: CTAB Cardiovascular: RRR, Normal S1, Normal S2 Abdomen: soft, non-tender, non-distended, positive bowel sound Extremities: excoriation Neurological: no change, disorganized Internal Medicine Assmt/Plan - Assessment Assessment: ASSESSMENT AND PLAN: 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 - Plan Plan: PLAN: (the patient is oxygen dependent). Continue oxygen, bronchodilator treatments, continue anticoagulation. Pharmacy will be following. Continue on current antihypertensive medication. We will make some adjustment, continue statin. Continue Flomax. Continue with current care. monitor for bleeding noncompliant at times w blood draw Nutritional Asmnt/Malnutr-PDOC - Dietary Evaluation Malnutrition Findings (Please click <Entered> for more info): Nutritional Asmnt/Malnutrition Start: 02/17/19 16: 01 Text: Status: Complete Freq: Protocol: Document 02/17/19 16:02 PATRICIA (Rec: 02/17/19 16:06 PATRICIA [id number]) Nutritional Asmnt/Malnutrition Patient General Information Nutritional Screening Moderate Risk Consult Diagnosis Depression, FTT Pertinent Medical Hx/Surgical Hx HTN, RN stated Pt had a previous stroke (No H&P Report , limited Hx) Subjective Information IA, Consult: FTT Pt is a 63-year-old male admitted on 02/17 c/o drinking too much with associated depression. Received consult for Failure to Thrive. Visited Pt in room, pt was awake and alert. Pt stated he has not had anything to drink in 5-6 years. He stated he has lost 25# in the last few months. I had nurse, Carla, recheck pts weight as he did not appear obese. His current weight is 127 LB (57.73 kg), this is a correction from his [employer] stats having his weight at 220#. Pt did not seem to have fat/muscle wasting at the temples, under eyes, or near the clavicle, but did seem overall skinny. 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 I offered pt a snack, asking if he was hungry right now. He said yes. I brought him an Ensure Enlive, chocolate is his favorite flavor, and egg salad sandwich and some pears. I told pt to do his best to eat at dinner time and drink liquids to help with his constipation. He stated OK. Pt was alert and seemed to understand, however was also a little unfocused and may have been confused. Spoke with Carla about offering him snacks between meals. Will add Ensure Enlive TID. HT: 511 WT: 127 LB (57.73 kg) BMI: 17.7 (Underweight) GI: Flat, Soft BM: Not noted, Constipation Skin: WNL, Intact, no edema present Alessandro: 14 Diet Order: Cardiac Estimated Energy Needs: ( Underweight, CBW) 1991-5348 kcals (30-35 kcals/ kg) 58-70g Pro (1.0-1.2 g/kg) 0639-7736 ml (25-30 ml/kg) Current Diet Order/ Nutrition Support Cardiac Pertinent Medications Albuterol, Lipitor, Plavix, Colace, Folate, Hydrochlorothiazide, Cozaar, MOM (PRN), Flomax, Vitamin B1, Coumadin Pertinent Labs No current labs to report Nutritional Hx/Data Height 1.8 m Height (Calculated Centimeters) 180.3 Current Weight (lbs) 57.606 kg Weight (Calculated Kilograms) 57.6 Weight (Calculated Grams) 78621.2 [place] Body Weight 172 LB (78.18 kg) % [place] Body Weight 74 Body Mass Index (BMI) 17.6 Weight Status Underweight GI Symptoms GI Symptoms Constipation Last BM Not noted, Constipation Skin Integrity/Comment: Skin: WNL, Intact, no edema present Alessandro: 14 Estimated Nutritional Goals BEE in Kcals: Using Current wt Calories/Kcals/Kg 30-35 Kcals Calculated 8996-5407 Protein: Using Current wt Protein g/k.0-1.2 Protein Calculated 58-70 Fluid: ml 3306-3549 ml (25-30 ml/kg) Nutritional Problem 1. Problem Problem Underweight Etiology r/t consistent inadequate energy intake Signs/Symptoms: aeb BMI 17.7, and PO intake 25 % meals. Malnutrition Related to Morbid Obesity Malnutrition related to morbid obesity No Intervention/Recommendation Comments 1.Continue with Cardiac diet as ordered. 2.Add Ensure Enlive TID ( completed). Expected Outcomes/Goals Expected Outcomes/Goals 1. PO intake to meet 75% of nutritional needs. 2. Monitor PO intake, wt, nutrition related labs, and skin integrity. 3. F/U as moderate risk in 3-5 days, 02/20-02/22
[2019-02-27] MEDS: Atorvastatin Calcium 10 MG TAB PO SCH (20:59)
--- NOTE | 2019-02-27 21:52 | Progress Notes ---
DATE: 02/27/2019 IDENTIFYING DATA: A 63-year-old male transferred from [facility] for treatment of depression and alcohol use disorder. Medication reconciliation reviewed. Lexapro 10 mg a day, risperidone 0.25 mg a day. Overnight nursing staff reported the patient had mostly been isolative, withdrawn, disengaged at times. Today on [id number] evaluation, the patient denies any side effects of medications, needs a lot of redirection to maintain a conversation at times, easily irritable and upset. MENTAL STATUS EXAMINATION: Irritable, anxious, isolative, withdrawn. ASSESSMENT AND PLAN: History of depression with alcohol use disorder who continues to tolerate the current medication regimen. We will continue primary psychiatrist's treatment plan and goals. Continue both individual and group therapy to continue validating the patient's emotions. JOB# [id number]
[2019-02-28] MEDS: Multivitamin Tab PO SCH (09:24)
--- NOTE | 2019-02-28 12:23 | Internal Medicine Prog Note ---
Internal Medicine Subjective - Subjective Patient seen and examined:: with staff, chart reviewed Patient is:: awake, verbal, non-interactive, in bed Per staff patient has:: no adverse event, no episodes of fall, poor appetite, tolerating meds Internal Medicine Objective - Physical Exam Vitals and I&O: Vital Signs Temp 97.8 F 02/28/19 05:44 Pulse 85 02/28/19 05:44 Resp 19 02/28/19 05:44 BP 104/68 02/28/19 09:25 Pulse Ox 97 02/28/19 05:44 Intake & Output 02/27/19 02/28/19 02/28/19 18:59 06:59 18:59 Intake Total 1200 360 Output Total 2 Balance 1200 358 Intake: Oral 1200 360 Output: Urine/Stool Mix 2 Other: # Voids 2 # Bowel Movements 1 Active Medications: Current Medications Acetaminophen (Tylenol) 650 mg PO Q4HR PRN PRN Reason: Moderate Pain / Temp above 100 Stop: 04/18/19 06:31 Last Admin: 02/26/19 22:03 Dose: 650 mg Acetaminophen (Tylenol Extra Strength) 500 mg PO Q6H PRN PRN Reason: Pain (Mild) Stop: 04/18/19 07:44 Albuterol Sulfate (Albuterol 2.5mg/3ml Neb Ud) 2.5 mg HHN Q4H PRN PRN Reason: Shortness of Breath Stop: 04/18/19 07:34 Amlodipine Besylate (Norvasc) 2.5 mg PO DAILY [facility] Stop: 04/18/19 08:59 Last Admin: 02/27/19 10:50 Dose: 2.5 mg Atorvastatin Calcium (Lipitor) 20 mg PO [facility]; Protocol Stop: 04/18/19 20:59 Last Admin: 02/27/19 20:59 Dose: 20 mg Bisacodyl (Dulcolax 10 Mg Supp) 10 mg RC DAILY PRN PRN Reason: Constipation Stop: 04/18/19 07:37 Clopidogrel Bisulfate (Plavix) 75 mg PO DAILY [facility] Stop: 04/18/19 08:59 Last Admin: 02/28/19 09:26 Dose: 75 mg Docusate Sodium (Colace) 100 mg PO BID PRN PRN Reason: Constipation Stop: 04/18/19 08:59 Last Admin: 02/27/19 10:51 Dose: 100 mg Escitalopram Oxalate (Lexapro) 10 mg PO DAILY [facility]; Protocol Stop: 04/18/19 08:59 Last Admin: 02/28/19 09:26 Dose: 10 mg Folic Acid (Folate) 1 mg PO DAILY [facility] Stop: 04/18/19 08:59 Last Admin: 02/28/19 09:26 Dose: 1 mg Hydrochlorothiazide (Hctz) 12.5 mg PO DAILY [facility] Stop: 04/18/19 08:59 Last Admin: 02/28/19 09:25 Dose: 12.5 mg Lorazepam (Ativan) 0.5 mg PO Q4HR PRN; Protocol PRN Reason: Anxiety Stop: 03/19/19 06:31 Last Admin: 02/24/19 08:55 Dose: 0.5 mg Losartan Potassium (Cozaar) 50 mg PO DAILY [facility] Stop: 04/18/19 08:59 Last Admin: 02/27/19 10:53 Dose: 50 mg Magnesium Hydroxide (Milk Of Magnesia) 30 ml PO HS PRN PRN Reason: Constipation Stop: 04/18/19 07:39 Metoprolol Tartrate (Lopressor) 25 mg PO BID [facility] Stop: 04/18/19 08:59 Last Admin: 02/27/19 18:00 Dose: Not Given Multivitamins/Vitamin C (Theragran) 1 tab PO DAILY [facility] Stop: 04/18/19 08:59 Last Admin: 02/28/19 09:24 Dose: 1 tab Risperidone (Risperdal) 0.25 mg PO HS [facility]; Protocol Stop: 04/24/19 20:59 Last Admin: 02/27/19 20:59 Dose: 0.25 mg Tamsulosin HCl (Flomax) 0.4 mg PO HS [facility] Stop: 04/18/19 20:59 Last Admin: 02/27/19 21:00 Dose: 0.4 mg Thiamine HCl (Vitamin B1) 100 mg PO DAILY [facility] Stop: 04/18/19 08:59 Last Admin: 02/28/19 09:24 Dose: 100 mg Warfarin Sodium (Coumadin Per Pharmacy) 1 [facility] [address] [facility]; Protocol Stop: 04/18/19 16:59 Zolpidem Tartrate (Ambien) 5 mg PO HS PRN PRN Reason: Insomnia Stop: 04/18/19 06:31 Last Admin: 02/27/19 21:00 Dose: 5 mg General: demented HEENT: NC/AT, PERRLA, EOMI, thinning hair, poor dentition Neck: Supple, No JVD Lungs: CTAB Cardiovascular: RRR, Normal S1, Normal S2 Abdomen: soft, non-tender, non-distended, positive bowel sound Extremities: excoriation Neurological: no change, disorganized Internal Medicine Assmt/Plan - Assessment Assessment: ASSESSMENT AND PLAN: 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 - Plan Plan: PLAN: (the patient is oxygen dependent). Continue oxygen, bronchodilator treatments, continue anticoagulation. Pharmacy will be following. Continue on current antihypertensive medication. We will make some adjustment, continue statin. Continue Flomax. Continue with current care. monitor for bleeding noncompliant at times w blood draw Nutritional Asmnt/Malnutr-PDOC - Dietary Evaluation Malnutrition Findings (Please click <Entered> for more info): Nutritional Asmnt/Malnutrition Start: 02/17/19 16: 01 Text: Status: Complete Freq: Protocol: Document 02/17/19 16:02 PATRICIA (Rec: 02/17/19 16:06 PATRICIA [email or web address]) Nutritional Asmnt/Malnutrition Patient General Information Nutritional Screening Moderate Risk Consult Diagnosis Depression, FTT Pertinent Medical Hx/Surgical Hx HTN, RN stated Pt had a previous stroke (No H&P Report , limited Hx) Subjective Information IA, Consult: FTT Pt is a 63-year-old male admitted on 02/17 c/o drinking too much with associated depression. Received consult for Failure to Thrive. Visited Pt in room, pt was awake and alert. Pt stated he has not had anything to drink in 5-6 years. He stated he has lost 25# in the last few months. I had nurse, Carla, recheck pts weight as he did not appear obese. His current weight is 127 LB (57.73 kg), this is a correction from his [employer] stats having his weight at 220#. Pt did not seem to have fat/muscle wasting at the temples, under eyes, or near the clavicle, but did seem overall skinny. Asked pt how his appetite has been, he stated fine, but PLASMA PROCESSOR reported he only ate 25% breakfast and lunch. I offered pt a snack, asking if he was hungry right now. He said yes. I brought him an Ensure Enlive, chocolate is his favorite flavor, and egg salad sandwich and some pears. I told pt to do his best to eat at dinner time and drink liquids to help with his constipation. He stated OK. Pt was alert and seemed to understand, however was also a little unfocused and may have been confused. Spoke with Carla about offering him snacks between meals. Will add Ensure Enlive TID. HT: 511 WT: 127 LB (57.73 kg) BMI: 17.7 (Underweight) GI: Flat, Soft BM: Not noted, Constipation Skin: WNL, Intact, no edema present Alessandro: 14 Diet Order: Cardiac Estimated Energy Needs: ( Underweight, CBW) 4494-1981 kcals (30-35 kcals/ kg) 58-70g Pro (1.0-1.2 g/kg) 7292-9014 ml (25-30 ml/kg) Current Diet Order/ Nutrition Support Cardiac Pertinent Medications Albuterol, Lipitor, Plavix, Colace, Folate, Hydrochlorothiazide, Cozaar, MOM (PRN), Flomax, Vitamin B1, Coumadin Pertinent Labs No current labs to report Nutritional Hx/Data Height 1.8 m Height (Calculated Centimeters) 180.3 Current Weight (lbs) 57.606 kg Weight (Calculated Kilograms) 57.6 Weight (Calculated Grams) 14448.2 [place] Body Weight 172 LB (78.18 kg) % [place] Body Weight 74 Body Mass Index (BMI) 17.6 Weight Status Underweight GI Symptoms GI Symptoms Constipation Last BM Not noted, Constipation Skin Integrity/Comment: Skin: WNL, Intact, no edema present Alessandro: 14 Estimated Nutritional Goals BEE in Kcals: Using Current wt Calories/Kcals/Kg 30-35 Kcals Calculated 2408-0967 Protein: Using Current wt Protein g/k.0-1.2 Protein Calculated 58-70 Fluid: ml 3963-6646 ml (25-30 ml/kg) Nutritional Problem 1. Problem Problem Underweight Etiology r/t consistent inadequate energy intake Signs/Symptoms: aeb BMI 17.7, and PO intake 25 % meals. Malnutrition Related to Morbid Obesity Malnutrition related to morbid obesity No Intervention/Recommendation Comments 1.Continue with Cardiac diet as ordered. 2.Add Ensure Enlive TID ( completed). Expected Outcomes/Goals Expected Outcomes/Goals 1. PO intake to meet 75% of nutritional needs. 2. Monitor PO intake, wt, nutrition related labs, and skin integrity. 3. F/U as moderate risk in 3-5 days, 02/20-02/22
--- NOTE | 2019-02-28 18:09 | Progress Notes ---
DATE: 02/28/2019 SUBJECTIVE: The patient was seen and evaluated. The patient's chart reviewed. Today on [id number], denies any side effect of medications, anxious, irritable. The patient just wants to go home. Discussed the patient's emotions. MENTAL STATUS EXAMINATION: Anxious, irritable, withdrawn, disengaged. ASSESSMENT AND PLAN: History of depression with residual psychosis, started to show some mild improvement. We will continue monitoring and evaluating. JOB# [id number]
[2019-02-28] MEDS: Atorvastatin Calcium 10 MG TAB PO SCH (21:29)
[2019-03-01] MEDS: Multivitamin Tab PO SCH (08:38)
--- NOTE | 2019-03-01 12:32 | Internal Medicine Prog Note ---
Internal Medicine Subjective - Subjective Patient seen and examined:: with staff, chart reviewed Patient is:: awake, verbal, non-interactive, in bed Per staff patient has:: no adverse event, no episodes of fall, poor appetite, tolerating meds Internal Medicine Objective - Physical Exam Vitals and I&O: Vital Signs Temp 96.8 F 03/01/19 05:37 Pulse 77 03/01/19 08:39 Resp 19 03/01/19 05:37 BP 99/56 03/01/19 08:39 Pulse Ox 93 03/01/19 05:37 Intake & Output 02/28/19 03/01/19 03/01/19 18:59 06:59 18:59 Intake Total 950 360 Output Total 1 Balance 950 359 Intake: Oral 950 360 Output: Urine/Stool Mix 1 Other: # Voids 4 2 # Bowel Movements 1 1 Active Medications: Current Medications Acetaminophen (Tylenol) 650 mg PO Q4HR PRN PRN Reason: Moderate Pain / Temp above 100 Stop: 04/18/19 06:31 Last Admin: 02/26/19 22:03 Dose: 650 mg Acetaminophen (Tylenol Extra Strength) 500 mg PO Q6H PRN PRN Reason: Pain (Mild) Stop: 04/18/19 07:44 Albuterol Sulfate (Albuterol 2.5mg/3ml Neb Ud) 2.5 mg HHN Q4H PRN PRN Reason: Shortness of Breath Stop: 04/18/19 07:34 Amlodipine Besylate (Norvasc) 2.5 mg PO DAILY [facility] Stop: 04/18/19 08:59 Last Admin: 03/01/19 08:38 Dose: Not Given Atorvastatin Calcium (Lipitor) 20 mg PO [facility]; Protocol Stop: 04/18/19 20:59 Last Admin: 02/28/19 21:29 Dose: 20 mg Bisacodyl (Dulcolax 10 Mg Supp) 10 mg RC DAILY PRN PRN Reason: Constipation Stop: 04/18/19 07:37 Clopidogrel Bisulfate (Plavix) 75 mg PO DAILY [facility] Stop: 04/18/19 08:59 Last Admin: 03/01/19 08:37 Dose: 75 mg Docusate Sodium (Colace) 100 mg PO BID PRN PRN Reason: Constipation Stop: 04/18/19 08:59 Last Admin: 02/27/19 10:51 Dose: 100 mg Escitalopram Oxalate (Lexapro) 10 mg PO DAILY [facility]; Protocol Stop: 04/18/19 08:59 Last Admin: 03/01/19 08:37 Dose: 10 mg Folic Acid (Folate) 1 mg PO DAILY [facility] Stop: 04/18/19 08:59 Last Admin: 03/01/19 08:38 Dose: 1 mg Hydrochlorothiazide (Hctz) 12.5 mg PO DAILY [facility] Stop: 04/18/19 08:59 Last Admin: 03/01/19 08:38 Dose: Not Given Lorazepam (Ativan) 0.5 mg PO Q4HR PRN; Protocol PRN Reason: Anxiety Stop: 03/19/19 06:31 Last Admin: 02/24/19 08:55 Dose: 0.5 mg Losartan Potassium (Cozaar) 50 mg PO DAILY [facility] Stop: 04/18/19 08:59 Last Admin: 03/01/19 08:39 Dose: 50 mg Magnesium Hydroxide (Milk Of Magnesia) 30 ml PO HS PRN PRN Reason: Constipation Stop: 04/18/19 07:39 Metoprolol Tartrate (Lopressor) 25 mg PO BID [facility] Stop: 04/18/19 08:59 Last Admin: 03/01/19 08:36 Dose: Not Given Multivitamins/Vitamin C (Theragran) 1 tab PO DAILY [facility] Stop: 04/18/19 08:59 Last Admin: 03/01/19 08:38 Dose: 1 tab Risperidone (Risperdal) 0.25 mg PO HS [facility]; Protocol Stop: 04/24/19 20:59 Last Admin: 02/28/19 21:30 Dose: 0.25 mg Tamsulosin HCl (Flomax) 0.4 mg PO HS [facility] Stop: 04/18/19 20:59 Last Admin: 02/28/19 21:30 Dose: 0.4 mg Thiamine HCl (Vitamin B1) 100 mg PO DAILY [facility] Stop: 04/18/19 08:59 Last Admin: 03/01/19 08:39 Dose: 100 mg Warfarin Sodium (Coumadin Per Pharmacy) 1 [facility] [address] [facility]; Protocol Stop: 04/18/19 16:59 Warfarin Sodium (Coumadin) 5 mg PO QPM [facility] Stop: 03/01/19 17:01 Last Admin: 02/28/19 16:27 Dose: 5 mg Zolpidem Tartrate (Ambien) 5 mg PO HS PRN PRN Reason: Insomnia Stop: 04/18/19 06:31 Last Admin: 02/27/19 21:00 Dose: 5 mg General: demented HEENT: NC/AT, PERRLA, EOMI, thinning hair, poor dentition Neck: Supple, No JVD Lungs: CTAB Cardiovascular: RRR, Normal S1, Normal S2 Abdomen: soft, non-tender, non-distended, positive bowel sound Extremities: excoriation Neurological: no change, disorganized Internal Medicine Assmt/Plan - Assessment Assessment: ASSESSMENT AND PLAN: 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 - Plan Plan: PLAN: (the patient is oxygen dependent). Continue oxygen, bronchodilator treatments, continue anticoagulation. Pharmacy will be following. Continue on current antihypertensive medication. We will make some adjustment, continue statin. Continue Flomax. Continue with current care. monitor for bleeding noncompliant at times w blood draw Nutritional Asmnt/Malnutr-PDOC - Dietary Evaluation Malnutrition Findings (Please click <Entered> for more info): Nutritional Asmnt/Malnutrition Start: 02/17/19 16: 01 Text: Status: Complete Freq: Protocol: Document 02/17/19 16:02 PATRICIA (Rec: 02/17/19 16:06 PATRICIA [id number]) Nutritional Asmnt/Malnutrition Patient General Information Nutritional Screening Moderate Risk Consult Diagnosis Depression, FTT Pertinent Medical Hx/Surgical Hx HTN, RN stated Pt had a previous stroke (No H&P Report , limited Hx) Subjective Information IA, Consult: FTT Pt is a 63-year-old male admitted on 02/17 c/o drinking too much with associated depression. Received consult for Failure to Thrive. Visited Pt in room, pt was awake and alert. Pt stated he has not had anything to drink in 5-6 years. He stated he has lost 25# in the last few months. I had nurse, Carla, recheck pts weight as he did not appear obese. His current weight is 127 LB (57.73 kg), this is a correction from his [employer] stats having his weight at 220#. Pt did not seem to have fat/muscle wasting at the temples, under eyes, or near the clavicle, but did seem overall skinny. Asked pt how his appetite has been, he stated fine, but AWNINGS MECHANIC reported he only ate 25% breakfast and lunch. I offered pt a snack, asking if he was hungry right now. He said yes. I brought him an Ensure Enlive, chocolate is his favorite flavor, and egg salad sandwich and some pears. I told pt to do his best to eat at dinner time and drink liquids to help with his constipation. He stated OK. Pt was alert and seemed to understand, however was also a little unfocused and may have been confused. Spoke with Carla about offering him snacks between meals. Will add Ensure Enlive TID. HT: 511 WT: 127 LB (57.73 kg) BMI: 17.7 (Underweight) GI: Flat, Soft BM: Not noted, Constipation Skin: WNL, Intact, no edema present Alessandro: 14 Diet Order: Cardiac Estimated Energy Needs: ( Underweight, CBW) 2128-2907 kcals (30-35 kcals/ kg) 58-70g Pro (1.0-1.2 g/kg) 8034-9966 ml (25-30 ml/kg) Current Diet Order/ Nutrition Support Cardiac Pertinent Medications Albuterol, Lipitor, Plavix, Colace, Folate, Hydrochlorothiazide, Cozaar, MOM (PRN), Flomax, Vitamin B1, Coumadin Pertinent Labs No current labs to report Nutritional Hx/Data Height 1.8 m Height (Calculated Centimeters) 180.3 Current Weight (lbs) 57.606 kg Weight (Calculated Kilograms) 57.6 Weight (Calculated Grams) 32643.2 [place] Body Weight 172 LB (78.18 kg) % [place] Body Weight 74 Body Mass Index (BMI) 17.6 Weight Status Underweight GI Symptoms GI Symptoms Constipation Last BM Not noted, Constipation Skin Integrity/Comment: Skin: WNL, Intact, no edema present Alessandro: 14 Estimated Nutritional Goals BEE in Kcals: Using Current wt Calories/Kcals/Kg 30-35 Kcals Calculated 3000-3541 Protein: Using Current wt Protein g/k.0-1.2 Protein Calculated 58-70 Fluid: ml 5043-3522 ml (25-30 ml/kg) Nutritional Problem 1. Problem Problem Underweight Etiology r/t consistent inadequate energy intake Signs/Symptoms: aeb BMI 17.7, and PO intake 25 % meals. Malnutrition Related to Morbid Obesity Malnutrition related to morbid obesity No Intervention/Recommendation Comments 1.Continue with Cardiac diet as ordered. 2.Add Ensure Enlive TID ( completed). Expected Outcomes/Goals Expected Outcomes/Goals 1. PO intake to meet 75% of nutritional needs. 2. Monitor PO intake, wt, nutrition related labs, and skin integrity. 3. F/U as moderate risk in 3-5 days, 02/20-02/22
[2019-03-01] MEDS: Atorvastatin Calcium 10 MG TAB PO SCH (21:52)
--- NOTE | 2019-03-02 02:13 | Progress Notes ---
DATE: 03/01/2019 SUBJECTIVE: The patient in the hospital and noted to be anxious, irritable, angry, still does not really know why he is here, stating "do they find out why am I here. I have gone over this with them before". Ongoing safety concerns. Poor impulse control, although he does seem to be showing some signs of improvement, generally calmer. No overt agitation, calm at this time, just angry, mostly irritable, anxious, isolative, withdrawn. Medications were noted. Fair sleep and fair appetite. We are struggling to find out where the patient can go. He has got nothing confirmed. We will continue dosing of Risperdal. PLAN: We will continue to monitor on a daily basis. [facility]# [id number]
[2019-03-02] MEDS: Multivitamin Tab PO SCH (08:20)
--- NOTE | 2019-03-02 12:23 | Internal Medicine Prog Note ---
Internal Medicine Subjective - Subjective Patient seen and examined:: with staff, chart reviewed Patient is:: awake, verbal, non-interactive, in bed Per staff patient has:: no adverse event, no episodes of fall, poor appetite, tolerating meds Internal Medicine Objective - Physical Exam Vitals and I&O: Vital Signs Temp 97.8 F 03/02/19 05:30 Pulse 96 03/02/19 08:20 Resp 19 03/02/19 05:30 BP 148/84 03/02/19 08:20 Pulse Ox 95 03/02/19 05:30 Intake & Output 03/01/19 03/02/19 03/02/19 18:59 06:59 18:59 Intake Total 800 360 Output Total 1 Balance 800 359 Intake: Oral 800 360 Output: Urine/Stool Mix 1 Other: # Voids 3 2 # Bowel Movements 0 1 Active Medications: Current Medications Acetaminophen (Tylenol) 650 mg PO Q4HR PRN PRN Reason: Moderate Pain / Temp above 100 Stop: 04/18/19 06:31 Last Admin: 02/26/19 22:03 Dose: 650 mg Acetaminophen (Tylenol Extra Strength) 500 mg PO Q6H PRN PRN Reason: Pain (Mild) Stop: 04/18/19 07:44 Albuterol Sulfate (Albuterol 2.5mg/3ml Neb Ud) 2.5 mg HHN Q4H PRN PRN Reason: Shortness of Breath Stop: 04/18/19 07:34 Amlodipine Besylate (Norvasc) 2.5 mg PO DAILY [facility] Stop: 04/18/19 08:59 Last Admin: 03/02/19 08:19 Dose: 2.5 mg Atorvastatin Calcium (Lipitor) 20 mg PO [facility]; Protocol Stop: 04/18/19 20:59 Last Admin: 03/01/19 21:52 Dose: 20 mg Bisacodyl (Dulcolax 10 Mg Supp) 10 mg RC DAILY PRN PRN Reason: Constipation Stop: 04/18/19 07:37 Clopidogrel Bisulfate (Plavix) 75 mg PO DAILY [facility] Stop: 04/18/19 08:59 Last Admin: 03/02/19 08:19 Dose: 75 mg Docusate Sodium (Colace) 100 mg PO BID PRN PRN Reason: Constipation Stop: 04/18/19 08:59 Last Admin: 02/27/19 10:51 Dose: 100 mg Escitalopram Oxalate (Lexapro) 10 mg PO DAILY [facility]; Protocol Stop: 04/18/19 08:59 Last Admin: 03/02/19 08:19 Dose: 10 mg Folic Acid (Folate) 1 mg PO DAILY [facility] Stop: 04/18/19 08:59 Last Admin: 03/02/19 08:19 Dose: 1 mg Hydrochlorothiazide (Hctz) 12.5 mg PO DAILY [facility] Stop: 04/18/19 08:59 Last Admin: 03/02/19 08:19 Dose: 12.5 mg Lorazepam (Ativan) 0.5 mg PO Q4HR PRN; Protocol PRN Reason: Anxiety Stop: 03/19/19 06:31 Last Admin: 03/01/19 16:39 Dose: 0.5 mg Losartan Potassium (Cozaar) 50 mg PO DAILY [facility] Stop: 04/18/19 08:59 Last Admin: 03/02/19 08:19 Dose: 50 mg Magnesium Hydroxide (Milk Of Magnesia) 30 ml PO HS PRN PRN Reason: Constipation Stop: 04/18/19 07:39 Metoprolol Tartrate (Lopressor) 25 mg PO BID [facility] Stop: 04/18/19 08:59 Last Admin: 03/02/19 08:20 Dose: 25 mg Multivitamins/Vitamin C (Theragran) 1 tab PO DAILY [facility] Stop: 04/18/19 08:59 Last Admin: 03/02/19 08:20 Dose: 1 tab Risperidone (Risperdal) 0.25 mg PO HS [facility]; Protocol Stop: 04/24/19 20:59 Last Admin: 03/01/19 21:52 Dose: 0.25 mg Tamsulosin HCl (Flomax) 0.4 mg PO HS [facility] Stop: 04/18/19 20:59 Last Admin: 03/01/19 21:53 Dose: 0.4 mg Thiamine HCl (Vitamin B1) 100 mg PO DAILY [facility] Stop: 04/18/19 08:59 Last Admin: 03/02/19 08:20 Dose: 100 mg Warfarin Sodium (Coumadin Per Pharmacy) 1 [facility] 1700 [facility]; Protocol Stop: 04/18/19 16:59 Zolpidem Tartrate (Ambien) 5 mg PO HS PRN PRN Reason: Insomnia Stop: 04/18/19 06:31 Last Admin: 02/27/19 21:00 Dose: 5 mg General: demented HEENT: NC/AT, PERRLA, EOMI, thinning hair, poor dentition Neck: Supple, No JVD Lungs: CTAB Cardiovascular: RRR, Normal S1, Normal S2 Abdomen: soft, non-tender, non-distended, positive bowel sound Extremities: excoriation Neurological: no change, disorganized Internal Medicine Assmt/Plan - Assessment Assessment: ASSESSMENT AND PLAN: 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 - Plan Plan: PLAN: (the patient is oxygen dependent). Continue oxygen, bronchodilator treatments, continue anticoagulation. Pharmacy will be following. Continue on current antihypertensive medication. We will make some adjustment, continue statin. Continue Flomax. Continue with current care. monitor for bleeding noncompliant at times w blood draw Nutritional Asmnt/Malnutr-PDOC - Dietary Evaluation Malnutrition Findings (Please click <Entered> for more info): Nutritional Asmnt/Malnutrition Start: 02/17/19 16: 01 Text: Status: Complete Freq: Protocol: Document 02/17/19 16:02 PATRICIA (Rec: 02/17/19 16:06 PATRICIA [email or web address]) Nutritional Asmnt/Malnutrition Patient General Information Nutritional Screening Moderate Risk Consult Diagnosis Depression, FTT Pertinent Medical Hx/Surgical Hx HTN, RN stated Pt had a previous stroke (No H&P Report , limited Hx) Subjective Information IA, Consult: FTT Pt is a 63-year-old male admitted on 02/17 c/o drinking too much with associated depression. Received consult for Failure to Thrive. Visited Pt in room, pt was awake and alert. Pt stated he has not had anything to drink in 5-6 years. He stated he has lost 25# in the last few months. I had nurse, Carla, recheck pts weight as he did not appear obese. His current weight is 127 LB (57.73 kg), this is a correction from his [employer] stats having his weight at 220#. Pt did not seem to have fat/muscle wasting at the temples, under eyes, or near the clavicle, but did seem overall skinny. 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 I offered pt a snack, asking if he was hungry right now. He said yes. I brought him an Ensure Enlive, chocolate is his favorite flavor, and egg salad sandwich and some pears. I told pt to do his best to eat at dinner time and drink liquids to help with his constipation. He stated OK. Pt was alert and seemed to understand, however was also a little unfocused and may have been confused. Spoke with Carla about offering him snacks between meals. Will add Ensure Enlive TID. HT: 511 WT: 127 LB (57.73 kg) BMI: 17.7 (Underweight) GI: Flat, Soft BM: Not noted, Constipation Skin: WNL, Intact, no edema present Alessandro: 14 Diet Order: Cardiac Estimated Energy Needs: ( Underweight, CBW) 9489-7025 kcals (30-35 kcals/ kg) 58-70g Pro (1.0-1.2 g/kg) 6788-3908 ml (25-30 ml/kg) Current Diet Order/ Nutrition Support Cardiac Pertinent Medications Albuterol, Lipitor, Plavix, Colace, Folate, Hydrochlorothiazide, Cozaar, MOM (PRN), Flomax, Vitamin B1, Coumadin Pertinent Labs No current labs to report Nutritional Hx/Data Height 1.8 m Height (Calculated Centimeters) 180.3 Current Weight (lbs) 57.606 kg Weight (Calculated Kilograms) 57.6 Weight (Calculated Grams) 88241.2 [place] Body Weight 172 LB (78.18 kg) % [place] Body Weight 74 Body Mass Index (BMI) 17.6 Weight Status Underweight GI Symptoms GI Symptoms Constipation Last BM Not noted, Constipation Skin Integrity/Comment: Skin: WNL, Intact, no edema present Alessandro: 14 Estimated Nutritional Goals BEE in Kcals: Using Current wt Calories/Kcals/Kg 30-35 Kcals Calculated 1469-2950 Protein: Using Current wt Protein g/k.0-1.2 Protein Calculated 58-70 Fluid: ml 7866-9870 ml (25-30 ml/kg) Nutritional Problem 1. Problem Problem Underweight Etiology r/t consistent inadequate energy intake Signs/Symptoms: aeb BMI 17.7, and PO intake 25 % meals. Malnutrition Related to Morbid Obesity Malnutrition related to morbid obesity No Intervention/Recommendation Comments 1.Continue with Cardiac diet as ordered. 2.Add Ensure Enlive TID ( completed). Expected Outcomes/Goals Expected Outcomes/Goals 1. PO intake to meet 75% of nutritional needs. 2. Monitor PO intake, wt, nutrition related labs, and skin integrity. 3. F/U as moderate risk in 3-5 days, 02/20-02/22
[2019-03-02] MEDS: Atorvastatin Calcium 10 MG TAB PO SCH (20:58)
[2019-03-03] MEDS: Multivitamin Tab PO SCH (08:34)
--- NOTE | 2019-03-03 12:49 | Internal Medicine Prog Note ---
Internal Medicine Subjective - Subjective Patient seen and examined:: with staff, chart reviewed Patient is:: awake, verbal, non-interactive, in bed Per staff patient has:: no adverse event, no episodes of fall, poor appetite, tolerating meds Internal Medicine Objective - Physical Exam Vitals and I&O: Vital Signs Temp 97.8 F 03/02/19 19:37 Pulse 104 03/03/19 08:35 Resp 20 03/02/19 19:37 BP 130/72 03/03/19 08:35 Pulse Ox 95 03/02/19 19:37 Intake & Output 03/02/19 03/03/19 03/03/19 18:59 06:59 18:59 Intake Total 1400 120 Balance 1400 120 Intake: Oral 1400 120 Other: # Voids 4 2 # Bowel Movements 1 1 Active Medications: Current Medications Acetaminophen (Tylenol) 650 mg PO Q4HR PRN PRN Reason: Moderate Pain / Temp above 100 Stop: 04/18/19 06:31 Last Admin: 02/26/19 22:03 Dose: 650 mg Acetaminophen (Tylenol Extra Strength) 500 mg PO Q6H PRN PRN Reason: Pain (Mild) Stop: 04/18/19 07:44 Albuterol Sulfate (Albuterol 2.5mg/3ml Neb Ud) 2.5 mg HHN Q4H PRN PRN Reason: Shortness of Breath Stop: 04/18/19 07:34 Amlodipine Besylate (Norvasc) 2.5 mg PO DAILY [facility] Stop: 04/18/19 08:59 Last Admin: 03/03/19 08:34 Dose: 2.5 mg Atorvastatin Calcium (Lipitor) 20 mg PO HS [facility]; Protocol Stop: 04/18/19 20:59 Last Admin: 03/02/19 20:58 Dose: 20 mg Bisacodyl (Dulcolax 10 Mg Supp) 10 mg RC DAILY PRN PRN Reason: Constipation Stop: 04/18/19 07:37 Clopidogrel Bisulfate (Plavix) 75 mg PO DAILY [facility] Stop: 04/18/19 08:59 Last Admin: 03/03/19 08:34 Dose: 75 mg Docusate Sodium (Colace) 100 mg PO BID PRN PRN Reason: Constipation Stop: 04/18/19 08:59 Last Admin: 02/27/19 10:51 Dose: 100 mg Escitalopram Oxalate (Lexapro) 10 mg PO DAILY [facility]; Protocol Stop: 04/18/19 08:59 Last Admin: 03/03/19 08:34 Dose: 10 mg Folic Acid (Folate) 1 mg PO DAILY [facility] Stop: 04/18/19 08:59 Last Admin: 03/03/19 08:34 Dose: 1 mg Hydrochlorothiazide (Hctz) 12.5 mg PO DAILY [facility] Stop: 04/18/19 08:59 Last Admin: 03/03/19 08:33 Dose: 12.5 mg Lorazepam (Ativan) 0.5 mg PO Q4HR PRN; Protocol PRN Reason: Anxiety Stop: 03/19/19 06:31 Last Admin: 03/01/19 16:39 Dose: 0.5 mg Losartan Potassium (Cozaar) 50 mg PO DAILY [facility] Stop: 04/18/19 08:59 Last Admin: 03/03/19 08:32 Dose: 50 mg Magnesium Hydroxide (Milk Of Magnesia) 30 ml PO HS PRN PRN Reason: Constipation Stop: 04/18/19 07:39 Metoprolol Tartrate (Lopressor) 25 mg PO BID [facility] Stop: 04/18/19 08:59 Last Admin: 03/03/19 08:35 Dose: 25 mg Multivitamins/Vitamin C (Theragran) 1 tab PO DAILY [facility] Stop: 04/18/19 08:59 Last Admin: 03/03/19 08:34 Dose: 1 tab Risperidone (Risperdal) 0.25 mg PO HS [facility]; Protocol Stop: 04/24/19 20:59 Last Admin: 03/02/19 20:58 Dose: 0.25 mg Tamsulosin HCl (Flomax) 0.4 mg PO HS [facility] Stop: 04/18/19 20:59 Last Admin: 03/02/19 20:58 Dose: 0.4 mg Thiamine HCl (Vitamin B1) 100 mg PO DAILY [facility] Stop: 04/18/19 08:59 Last Admin: 03/03/19 08:36 Dose: 100 mg Warfarin Sodium (Coumadin Per Pharmacy) 1 [facility] 1700 [facility]; Protocol Stop: 04/18/19 16:59 Zolpidem Tartrate (Ambien) 5 mg PO HS PRN PRN Reason: Insomnia Stop: 04/18/19 06:31 Last Admin: 03/02/19 20:58 Dose: 5 mg General: demented HEENT: NC/AT, PERRLA, EOMI, thinning hair, poor dentition Neck: Supple, No JVD Lungs: CTAB Cardiovascular: RRR, Normal S1, Normal S2 Abdomen: soft, non-tender, non-distended, positive bowel sound Extremities: excoriation Neurological: no change, disorganized Internal Medicine Assmt/Plan - Assessment Assessment: ASSESSMENT AND PLAN: 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 - Plan Plan: PLAN: (the patient is oxygen dependent). Continue oxygen, bronchodilator treatments, continue anticoagulation. Pharmacy will be following. Continue on current antihypertensive medication. We will make some adjustment, continue statin. Continue Flomax. Continue with current care. monitor for bleeding noncompliant at times w blood draw Nutritional Asmnt/Malnutr-PDOC - Dietary Evaluation Malnutrition Findings (Please click <Entered> for more info): Nutritional Asmnt/Malnutrition Start: 02/17/19 16: 01 Text: Status: Complete Freq: Protocol: Document 02/17/19 16:02 PATRICIA (Rec: 02/17/19 16:06 PATRICIA [email or web address]) Nutritional Asmnt/Malnutrition Patient General Information Nutritional Screening Moderate Risk Consult Diagnosis Depression, FTT Pertinent Medical Hx/Surgical Hx HTN, RN stated Pt had a previous stroke (No H&P Report , limited Hx) Subjective Information IA, Consult: FTT Pt is a 63-year-old male admitted on 02/17 c/o drinking too much with associated depression. Received consult for Failure to Thrive. Visited Pt in room, pt was awake and alert. Pt stated he has not had anything to drink in 5-6 years. He stated he has lost 25# in the last few months. I had nurse, Carla, recheck pts weight as he did not appear obese. His current weight is 127 LB (57.73 kg), this is a correction from his [email or web address] stats having his weight at 220#. Pt did not seem to have fat/muscle wasting at the temples, under eyes, or near the clavicle, but did seem overall skinny. 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 I offered pt a snack, asking if he was hungry right now. He said yes. I brought him an Ensure Enlive, chocolate is his favorite flavor, and egg salad sandwich and some pears. I told pt to do his best to eat at dinner time and drink liquids to help with his constipation. He stated OK. Pt was alert and seemed to understand, however was also a little unfocused and may have been confused. Spoke with Carla about offering him snacks between meals. Will add Ensure Enlive TID. HT: 511 WT: 127 LB (57.73 kg) BMI: 17.7 (Underweight) GI: Flat, Soft BM: Not noted, Constipation Skin: WNL, Intact, no edema present Alessandro: 14 Diet Order: Cardiac Estimated Energy Needs: ( Underweight, CBW) 6690-8227 kcals (30-35 kcals/ kg) 58-70g Pro (1.0-1.2 g/kg) 2208-8229 ml (25-30 ml/kg) Current Diet Order/ Nutrition Support Cardiac Pertinent Medications Albuterol, Lipitor, Plavix, Colace, Folate, Hydrochlorothiazide, Cozaar, MOM (PRN), Flomax, Vitamin B1, Coumadin Pertinent Labs No current labs to report Nutritional Hx/Data Height 1.8 m Height (Calculated Centimeters) 180.3 Current Weight (lbs) 57.606 kg Weight (Calculated Kilograms) 57.6 Weight (Calculated Grams) 86448.2 [place] Body Weight 172 LB (78.18 kg) % [place] Body Weight 74 Body Mass Index (BMI) 17.6 Weight Status Underweight GI Symptoms GI Symptoms Constipation Last BM Not noted, Constipation Skin Integrity/Comment: Skin: WNL, Intact, no edema present Alessandro: 14 Estimated Nutritional Goals BEE in Kcals: Using Current wt Calories/Kcals/Kg 30-35 Kcals Calculated 3406-4015 Protein: Using Current wt Protein g/k.0-1.2 Protein Calculated 58-70 Fluid: ml 6209-6486 ml (25-30 ml/kg) Nutritional Problem 1. Problem Problem Underweight Etiology r/t consistent inadequate energy intake Signs/Symptoms: aeb BMI 17.7, and PO intake 25 % meals. Malnutrition Related to Morbid Obesity Malnutrition related to morbid obesity No Intervention/Recommendation Comments 1.Continue with Cardiac diet as ordered. 2.Add Ensure Enlive TID ( completed). Expected Outcomes/Goals Expected Outcomes/Goals 1. PO intake to meet 75% of nutritional needs. 2. Monitor PO intake, wt, nutrition related labs, and skin integrity. 3. F/U as moderate risk in 3-5 days, 02/20-02/22
--- NOTE | 2019-03-03 16:23 | Progress Notes ---
DATE: SUBJECTIVE: Chart reviewed and the patient interviewed. Also discussed the patient's condition with the staff and reviewed records and labs. The patient is still restless and is still easily irritable and easily agitated. The patient also stays in bed and contracted and position. Also is still confused and does not know why he is there. Also, staff saying that he still gets agitated and aggressive, especially during helping him with his ADLs. Otherwise, the patient is compliant with taking his medications with no side effects of medications and he continued to take Risperdal with no side effects. ASSESSMENT: The patient is still agitated and psychotic. TREATMENT PLAN: We will monitor the patient's behavior and condition and continue to work on his agitation and irritability and follow up. [facility]# [id number]
[2019-03-03] MEDS: Atorvastatin Calcium 10 MG TAB PO SCH (20:53)
--- NOTE | 2019-03-03 22:21 | Progress Notes ---
DATE: 03/03/2019 PSYCHIATRIC PROGRESS NOTE SUBJECTIVE: Chart reviewed and the patient interviewed. Also discussed the patient's condition with the staff and reviewed records and labs. The patient seems to be slightly calmer and less agitated. The patient also is still asking for the same thing over and over and he repeats his questions and he is still having repetitive thoughts. The patient also still has episodes of irritability and agitation, but it seems to be much less than before. He also is cooperative and compliant with taking his medications with no side effects. ASSESSMENT: The patient is less agitated. TREATMENT PLAN: The patient continued to take Risperdal 0.5 mg at bedtime and Lexapro 5 mg every day. Placement is an issue and community case manager working on placement and questionable if the patient can return to [facility] but we are confirming that at this time. JOB# [id number]
[2019-03-04] MEDS: Multivitamin Tab PO SCH (09:18)
--- NOTE | 2019-03-04 15:35 | Internal Medicine Prog Note ---
Internal Medicine Subjective - Subjective Patient seen and examined:: with staff, chart reviewed, other (seen at 10 am) Patient is:: awake, verbal, non-interactive, in bed Per staff patient has:: no adverse event, no episodes of fall, poor appetite, tolerating meds Internal Medicine Objective - Physical Exam Vitals and I&O: Vital Signs Temp 97.3 F 03/04/19 10:02 Pulse 81 03/04/19 10:02 Resp 18 03/04/19 10:02 BP 124/59 03/04/19 10:02 Pulse Ox 95 03/04/19 10:02 Intake & Output 03/03/19 03/04/19 03/04/19 18:59 06:59 18:59 Intake Total 705 485 4516 Balance 304 682 4857 Intake: Oral 676 417 0826 Other: # Voids 3 3 2 # Bowel Movements 1 1 General: demented HEENT: NC/AT, PERRLA, EOMI, thinning hair, poor dentition Neck: Supple, No JVD Lungs: CTAB Cardiovascular: RRR, Normal S1, Normal S2 Abdomen: soft, non-tender, non-distended, positive bowel sound Extremities: excoriation Neurological: no change, disorganized Internal Medicine Assmt/Plan - Assessment Assessment: ASSESSMENT AND PLAN: 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 - Plan Plan: PLAN: (the patient is oxygen dependent). Continue oxygen, bronchodilator treatments, continue anticoagulation. Pharmacy will be following. Continue on current antihypertensive medication. We will make some adjustment, continue statin. Continue Flomax. Continue with current care. monitor for bleeding noncompliant at times w blood draw Nutritional Asmnt/Malnutr-PDOC - Dietary Evaluation Malnutrition Findings (Please click <Entered> for more info): Nutritional Asmnt/Malnutrition Start: 02/17/19 16: 01 Text: Status: Complete Freq: Protocol: Document 02/17/19 16:02 PATRICIA (Rec: 02/17/19 16:06 PATRICIA [email or web address]) Nutritional Asmnt/Malnutrition Patient General Information Nutritional Screening Moderate Risk Consult Diagnosis Depression, FTT Pertinent Medical Hx/Surgical Hx HTN, RN stated Pt had a previous stroke (No H&P Report , limited Hx) Subjective Information IA, Consult: FTT Pt is a 63-year-old male admitted on 02/17 c/o drinking too much with associated depression. Received consult for Failure to Thrive. Visited Pt in room, pt was awake and alert. Pt stated he has not had anything to drink in 5-6 years. He stated he has lost 25# in the last few months. I had nurse, Carla, recheck pts weight as he did not appear obese. His current weight is 127 LB (57.73 kg), this is a correction from his [employer] stats having his weight at 220#. Pt did not seem to have fat/muscle wasting at the temples, under eyes, or near the clavicle, but did seem overall skinny. Asked pt how his appetite has been, he stated fine, but NATIONAL SALES reported he only ate 25% breakfast and lunch. I offered pt a snack, asking if he was hungry right now. He said yes. I brought him an Ensure Enlive, chocolate is his favorite flavor, and egg salad sandwich and some pears. I told pt to do his best to eat at dinner time and drink liquids to help with his constipation. He stated OK. Pt was alert and seemed to understand, however was also a little unfocused and may have been confused. Spoke with Carla about offering him snacks between meals. Will add Ensure Enlive TID. HT: 511 WT: 127 LB (57.73 kg) BMI: 17.7 (Underweight) GI: Flat, Soft BM: Not noted, Constipation Skin: WNL, Intact, no edema present Alessandro: 14 Diet Order: Cardiac Estimated Energy Needs: ( Underweight, CBW) 9017-5348 kcals (30-35 kcals/ kg) 58-70g Pro (1.0-1.2 g/kg) 4814-2567 ml (25-30 ml/kg) Current Diet Order/ Nutrition Support Cardiac Pertinent Medications Albuterol, Lipitor, Plavix, Colace, Folate, Hydrochlorothiazide, Cozaar, MOM (PRN), Flomax, Vitamin B1, Coumadin Pertinent Labs No current labs to report Nutritional Hx/Data Height 1.8 m Height (Calculated Centimeters) 180.3 Current Weight (lbs) 57.606 kg Weight (Calculated Kilograms) 57.6 Weight (Calculated Grams) 86838.2 [place] Body Weight 172 LB (78.18 kg) % [place] Body Weight 74 Body Mass Index (BMI) 17.6 Weight Status Underweight GI Symptoms GI Symptoms Constipation Last BM Not noted, Constipation Skin Integrity/Comment: Skin: WNL, Intact, no edema present Alessandro: 14 Estimated Nutritional Goals BEE in Kcals: Using Current wt Calories/Kcals/Kg 30-35 Kcals Calculated 9187-9166 Protein: Using Current wt Protein g/k.0-1.2 Protein Calculated 58-70 Fluid: ml 8764-1238 ml (25-30 ml/kg) Nutritional Problem 1. Problem Problem Underweight Etiology r/t consistent inadequate energy intake Signs/Symptoms: aeb BMI 17.7, and PO intake 25 % meals. Malnutrition Related to Morbid Obesity Malnutrition related to morbid obesity No Intervention/Recommendation Comments 1.Continue with Cardiac diet as ordered. 2.Add Ensure Enlive TID ( completed). Expected Outcomes/Goals Expected Outcomes/Goals 1. PO intake to meet 75% of nutritional needs. 2. Monitor PO intake, wt, nutrition related labs, and skin integrity. 3. F/U as moderate risk in 3-5 days, 02/20-02/22
--- NOTE | 2019-03-05 20:28 | Discharge Summary ---
DATE OF DISCHARGE: 03/04/2019 AGE: 63. SEX: Male. PHYSICIAN: Dr. Fiore. PRIMARY DIAGNOSIS: Depressive mood disorder, unspecified. SECONDARY DIAGNOSIS: Alcohol use disorder. MEDICAL DIAGNOSIS: Hypertension. REASON FOR HOSPITALIZATION: The patient was admitted to the hospital because of increased drinking and depression. HOSPITAL COURSE: The patient continued to be anxious and depressed. The patient also was monitored closely for any possible alcohol withdrawal, but the patient had no issues with withdrawal. He also was started on Lexapro because of his depression with no side effects. The patient gradually was motivated to stay sober and also was not suicidal, homicidal, or depressed and the patient was discharged from the hospital. Also because of periods of agitation, was given Risperdal 0.25 mg at bedtime. PHYSICAL EXAMINATION: The patient showed that the patient has hypertension, otherwise no major medical problems. AFTER DISCHARGE PLANS: The patient discharged from the hospital back to [facility] with plans for followup there. EXPECTED OUTCOME AFTER DISCHARGE: Fair if the patient continues to stay sober and follow up with his discharge plans. [facility]# [id number]
== END 2019-03-04 13:20 | DRG 881 ==
LOC: GERO 02-17 02:15
PROVIDERS: ADMIT Psychiatry & Neurology Psychiatry; ATTEND Psychiatry & Neurology Psychiatry
DX: F32.9 Major depressive disorder, single episode, unspecified (principal); I69.954 Hemiplegia and hemiparesis following unspecified cerebrovascular disease affecting left non-dominant side; I10 Essential (primary) hypertension; J44.9 Chronic obstructive pulmonary disease, unspecified; E78.00 Pure hypercholesterolemia, unspecified; N40.0 Benign prostatic hyperplasia without lower urinary tract symptoms
CPT/HCPCS: 83036-90; Z7610